=== PATIENT | male | born 1945 | race Two or more races ===

== ENCOUNTER 2019-11-13 09:30 | Inpatient (IN) | payer MEDICARE, OTHER ==
[~2019-11-13] VITALS: Ht 170.2 cm; Wt 105.2 kg
[2019-11-13] VITALS (7 sets, daily range): BP systolic 140–160; BP diastolic 72–91
--- NOTE | 2019-11-13 09:30 | NUR ---
ED Nurse Note: Patient CHUYITA RA70 from home c/o SOB x 3 days, fever 100.9F and cough x yesterday. Pt is on NRB, O2 100%. Pt was tested for Covid yesterday , result pending. Patient presented diaforetic, weak, with SOB. Patient's O2 sat 83% on a RA, DC NRB mask and placed patient on 2 L via NC. Patient's O2 sat 96%. IV access was established on left forearm 18 ga, blood and urine specimen collected sent down.
[2019-11-13] MEDS ORDERED: PROCRIT4000 UNIT/ SUBQ (09:38)
[2019-11-13] MEDS ORDERED: HUMALOG100 UNIT/4 SUBQ (09:38)
[2019-11-13] MEDS ORDERED: FUROSEMIDE40 MG ORAL (09:38)
[2019-11-13] MEDS ORDERED: PROPRANOLOL HCL10 MG ORAL (09:38)
[2019-11-13] MEDS ORDERED: ZOCOR40 MG ORAL (09:38)
[2019-11-13] MEDS ORDERED: VITAMIN D375 MCG PO (09:38)
[2019-11-13] MEDS ORDERED: FERROUS SULFAT325 MG ORAL (09:38)
[2019-11-13] MEDS ORDERED: ALLOPURINOL300 M1 ORAL (09:38)
[2019-11-13] MEDS ORDERED: MAGNESIUM250 M2 PO (09:38)
--- NOTE | 2019-11-13 09:40 | NUR ---
ED Nurse Note: Patient start desating, patient's O2 sat went down to 83%, placed patient on 2L via NC.
[2019-11-13 10:15] LABS: ANION GAP 10 mmol/L (5-15); BLOOD UREA NITROGEN 44 mg/dL (7-18); CALCIUM 7.6 MG/DL (8.5-10.1); CARBON DIOXIDE 23 MMOL/L (21-32); CHLORIDE 100 MMOL/L (98-107); CREATININE 2.9 MG/DL (0.55-1.30); POTASSIUM 5.1 MMOL/L (3.5-5.1); SODIUM 133 MMOL/L (136-145)
[2019-11-13 10:26] LABS: BASOPHILS % (AUTO) 0.4 % (0.0-2.0); EOSINOPHILS % (AUTO) 0.3 % (0.0-3.0); HEMATOCRIT 26.9 % (42.0-52.0); HEMOGLOBIN 9.1 G/DL (14.2-18.0); LYMPHOCYTES % (AUTO) 12.6 % (20.0-45.0); MEAN CORPUSCULAR VOLUME 92 FL (80-99); MONOCYTES % (AUTO) 7.4 % (1.0-10.0); NEUTROPHILS % (AUTO) 79.2 % (45.0-75.0); PLATELET COUNT 128 K/UL (150-450); RED BLOOD COUNT 2.91 M/UL (4.70-6.10); RED CELL DISTRIBUTION WIDTH 13.8 % (11.6-14.8); WHITE BLOOD COUNT 6.4 K/UL (4.8-10.8)
--- NOTE | 2019-11-13 10:26 | NUR ---
ED Nurse Note: Patient is in the room resting with eyes close, NAD noted.
[2019-11-13 10:28] LABS: ALANINE AMINOTRANSFERASE 15 U/L (12-78); ALBUMIN 2.1 G/DL (3.4-5.0); ALBUMIN/GLOBULIN RATIO 0.5 (1.0-2.7); ALKALINE PHOSPHATASE 76 U/L (46-116); ASPARTATE AMINO TRANSFERASE 28 U/L (15-37); BILIRUBIN,TOTAL 0.8 MG/DL (0.2-1.0); CKMB 0.7 NG/ML (0.0-3.6); CREATINE KINASE 96 U/L (26-308); PHOSPHORUS 4.3 MG/DL (2.5-4.9)
--- NOTE | 2019-11-13 10:31 | Emergency Room Report ---
History of Present Illness General Chief Complaint: Dyspnea/Respdistress Source: Patient, EMS Present Illness HPI This patient is brought in by EMS. The patient states he had been fatigued and tired for the past week. Over the past few days he has developed shortness of breath. Yesterday he had 2 episodes of fainting. He does have a history of anemia that at times has required transfusions. Over the past couple days he has become very short of breath. He was tested for COVID-[address] a [address]-through location. These test results are pending. Later, the patient's daughter arrived and stated that the family members had tested positive for COVID-19 a few days ago. 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 COVID-19 Screening: PUI COVID-19 COVID-19 Testing Source: n Patient History Past Medical History: see triage record, DM, HTN, renal disease, other - Esophagitis, anemia (unsure of the source of bleeding) Social History: Denies: smoking, alcohol use, drug use Reviewed Nursing Documentation: PMH: Agreed; PSxH: Agreed Nursing Documentation-PMH Hx Cardiac Problems: Yes Hx Hypertension: Yes Hx Diabetes: Yes Review of Systems All Other Systems: negative except mentioned in HPI Physical Exam Vital Signs Date Time Temp Pulse Resp B/P (MAP) Pulse Ox O2 Delivery O2 Flow Rate FiO2 11/13/19 09:22 98.8 74 20 140/80 (100) 100 Non-Rebreather 11/13/19 09:40 83 Sp02 EP Interpretation: reviewed, normal General Appearance: no apparent distress, alert, GCS 15, non-toxic Head: normocephalic, atraumatic Eyes: bilateral eye normal inspection, bilateral eye PERRL ENT: hearing grossly normal, normal pharynx, no angioedema, normal voice Neck: full range of motion, supple/symm/no masses Respiratory: chest non-tender, lungs clear, normal breath sounds, no respiratory distress, no retraction, no accessory muscle use, speaking full sentences Cardiovascular #1: regular rate, rhythm, no edema Gastrointestinal: normal bowel sounds, non tender, soft, non-distended, no guarding, no rebound Rectal: deferred Musculoskeletal: back normal, normal range of motion, non-tender Neurologic: alert, motor strength/tone normal, oriented x3, sensory intact, responsive, speech normal Psychiatric: judgement/insight normal, memory normal, mood/affect normal, no suicidal/homicidal ideation Skin: no rash, normal color Medical Decision Making Diagnostic Impression: Primary Impression: Suspected COVID-19 virus infection Additional Impressions: Pulmonary edema Renal failure Lymphopenia Hypoxemia ER Course This patient presents during a global pandemic of COVID-19. The patient's presentation is classic with COVID 19 pulmonary disease. Patient has diffuse patchy opacities, lymphopenia and hypoxia on room air (83%). The patient is comfortable and without evidence of respiratory distress. The patient oxygen saturation is 98% on 2 L nasal cannula. The patient's chest x-ray does show diffuse patchy opacities. However, the patient is maintaining his respiratory status well with oxygen saturations in the high 90s on 2 L of nasal cannula. I did have the patient do proning as he is alert and able to follow instructions. I did not give any anticoagulation for concern of the patient's history of bleeding. IV fluids were also held as this was proven to be detrimental and COVID-19 pulmonary edema. The patient is admitted to the ICU stepdown unit. This patient was evaluated in the context of the global COVID-19 pandemic, which necessitated consideration that the patient might be at risk for infection with the [id number] virus that causes COVID-19. Institutional protocols and algorithms that pertain to the evaluation of patients at risk for COVID-19 and the state of rapid change based on information released by multiple regulatory bodies including the CDC and federal and state organizations. These policies and algorithms were followed during the patient' s care in the ED. This patient is critically ill. This patient required complex medical decision- making, aggressive intervention, extensive laboratory workup and monitoring. Critical care time: 40 minutes. Laboratory Tests Test 11/13/19 09:47 11/13/19 10:10 White Blood Count 6.4 K/UL (4.8-10.8) Red Blood Count 2.91 M/UL (4.70-6.10) L Hemoglobin 9.1 G/DL (14.2-18.0) L Hematocrit 26.9 % (42.0-52.0) L Mean Corpuscular Volume 92 FL (80-99) Mean Corpuscular Hemoglobin 31.1 PG (27.0-31.0) H Mean Corpuscular Hemoglobin Concent 33.7 G/DL (32.0-36.0) Red Cell Distribution Width 13.8 % (11.6-14.8) Platelet Count 128 K/UL (150-450) L Mean Platelet Volume 5.4 FL (6.5-10.1) L Neutrophils (%) (Auto) 79.2 % (45.0-75.0) H Lymphocytes (%) (Auto) 12.6 % (20.0-45.0) L Monocytes (%) (Auto) 7.4 % (1.0-10.0) Eosinophils (%) (Auto) 0.3 % (0.0-3.0) Basophils (%) (Auto) 0.4 % (0.0-2.0) Prothrombin Time 10.9 SEC (9.30-11.50) Prothrombin Time INR 1.0 (0.9-1.1) Activated Partial Thromboplast Time 33 SEC (23-33) D-Dimer Pending Sodium Level 133 MMOL/L (136-145) L Potassium Level 5.1 MMOL/L (3.5-5.1) Chloride Level 100 MMOL/L (98-107) Carbon Dioxide Level 23 MMOL/L (21-32) Anion Gap 10 mmol/L (5-15) Blood Urea Nitrogen 44 mg/dL (7-18) H Creatinine 2.9 MG/DL (0.55-1.30) H Estimated Glomerular Filtration Rate 21.5 mL/min (>60) Glucose Level 151 MG/DL (74-106) H Lactic Acid Level 1.80 mmol/L (0.4-2.0) Calcium Level 7.6 MG/DL (8.5-10.1) L Phosphorus Level 4.3 MG/DL (2.5-4.9) Magnesium Level 2.3 MG/DL (1.8-2.4) Total Bilirubin 0.8 MG/DL (0.2-1.0) Aspartate Amino Transferase (AST) 28 U/L (15-37) Alanine Aminotransferase (ALT) 15 U/L (12-78) Alkaline Phosphatase 76 U/L (46-116) Total Creatine Kinase 96 U/L (26-308) Creatine Kinase MB 0.7 NG/ML (0.0-3.6) Creatine Kinase MB Relative Index 0.7 Troponin I 0.060 ng/mL (0.000-0.056) C-Reactive Protein, Quantitative 15.7 mg/dL (0.00-0.90) H Total Protein 6.7 G/DL (6.4-8.2) Albumin 2.1 G/DL (3.4-5.0) L Globulin 4.6 g/dL Albumin/Globulin Ratio 0.5 (1.0-2.7) L Urine Color Pending Urine Appearance Pending Urine pH Pending Urine Specific Sparks Pending Urine Protein Pending Urine Glucose (UA) Pending Urine Ketones Pending Urine Blood Pending Urine Nitrite Pending Urine Bilirubin Pending Urine Urobilinogen Pending Urine Leukocyte Esterase Pending EKG Diagnostic Results Rate: normal Rhythm: NSR ST Segments: no acute changes Rhythm Strip Diag. Results EP Interpretation: yes Rate: 60's Rhythm: NSR, no PVC's, no ectopy Chest X-Ray Diagnostic Results Chest X-Ray Diagnostic Results : Chest X-Ray Ordered: Yes # of Views/Limited/Complete: 1 View Indication: Shortness of Breath EP Interpretation: Yes Interpretation: other - Diffuse patchy opacities Impression: Other - Pulmonary edema Electronically Signed by: Jackie Hearn DO Last Vital Signs Date Time Temp Pulse Resp B/P (MAP) Pulse Ox O2 Delivery O2 Flow Rate FiO2 11/13/19 09:40 74 20 Room Air 83 11/13/19 09:40 98.8 140/80 83 Disposition: ADMITTED INPATIENT Condition: Critical Jackie Hearn DO November 13, 2019 10:31
--- NOTE | 2019-11-13 10:35 | Diagnostic Imaging Report ---
Procedure: XRAY Chest 1v Reason for study: Reason For Exam: SOB Comparison films: None. FINDINGS: Radiograph is underpenetrated. Vascular markings are indistinct. There are bilateral diffuse infiltrates versus edema. Cardiac and mediastinal silhouette are within normal limits. CP angles are sharp. The bony thorax appear unremarkable. IMPRESSION: Bilateral diffuse alveolar densities either infiltrates or edema.
[2019-11-13] MEDS ORDERED: Acetaminophen 500mg (ES) tab ORAL ONE (10:45)
[2019-11-13] MEDS ORDERED: Azithromycin 250mg tab ORAL ONE (10:45)
[2019-11-13 11:01] LABS: APPEARANCE,URINE CLEAR; BILIRUBIN, URINE NEGATIVE (NEGATIVE); COLOR,URINE PALE YELLOW; GLUCOSE, URINE (UA) NEGATIVE (NEGATIVE); KETONES,URINE NEGATIVE (NEGATIVE); LEUKOCYTE ESTERASE ,URINE NEGATIVE (NEGATIVE); NITRITE,URINE NEGATIVE (NEGATIVE); PH,URINE 5 (4.5-8.0); PROTEIN,URINE 4+ (NEGATIVE); UROBILINOGEN,URINE NORMAL MG/DL (0.0-1.0)
--- NOTE | 2019-11-13 11:45 | NUR ---
ED Nurse Note: water was provided
--- NOTE | 2019-11-13 13:20 | NUR ---
*-* INSURANCE *-* HCP P: [phone] OPT. 1 F: [phone] PATIENT IN ER NO CM ASSIGNED
--- NOTE | 2019-11-13 14:00 | NUR ---
ED Nurse Note: REPORT RECEIVED FROM PHILL De Leon. PT IS TRANSPORTED TO [facility] ROOM 239 VIA GURNEY WITH SALT LIFTER ACCOMPANIED BY 2 RN IN STABLE CONDITION. BELONGING LIST SIGNED OFF.
--- NOTE | 2019-11-13 14:10 | NUR ---
NURSE NOTES: Received report from PHILL Schaefer. The patient came in for R/O COVID w/ symptoms of fever, shortness of breath, and coughing. The patient's belongings checked with the patient and two nurses and signed by two nurses. Medical, surgical, allergy, and social history taken by the nurse. Admitting EKG strip obtained from ER. Medication reconciliation completed by the primary nurse. The patient has L FA 18G SL that is intact and patent. Per patient, he does not have POLST or advance directive. Vital signs noted. The patient is AOx4 and mainly Frisian speaking. The patient is on 2L NC and oxygen saturation within normal range. L FA 18G IV intact and patent and SL. No skin issue noted but optifoam applied on sacral and bilateral heels prophylactically. Condom cath applied. The patient's bed in the lowest position, call light in reach, and fall and aspiration precaution reinforced. Will obtain admission order from Dr. Knapp. Will closely monitor the patient. Will continue plan of care.
--- NOTE | 2019-11-13 14:30 | NUR ---
NURSE NOTES: Obtained admission orders from Dr. Knapp and Dr. Yao. The patient is stable at this time. The patient is on 2L NC per order and oxygen saturation within normal range. Will continue plan of care.
--- NOTE | 2019-11-13 14:54 | Consultation ---
Consult Note Consult Note I am asked to evaluate the patient at the request of Dr. Knapp for renal failure Patient seen in room 239 at [facility]. RN present. Patient . Patient has history of cirrhosis of the liver, was ex drinker, has history of diabetes mellitus, and was told by his physicians that he has stage III chronic kidney disease Patient evaluated and examined and data reviewed Emergency room note: This patient is brought in by EMS. The patient states he had been fatigued and tired for the past week. Over the past few days he has developed shortness of breath. Yesterday he had 2 episodes of fainting. He does have a history of anemia that at times has required transfusions. Over the past couple days he has become very short of breath. He was tested for COVID-[address] a [address]-through location. These test results are pending. Later, the patient's daughter arrived and stated that the family members had tested positive for COVID-19 a few days ago. 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 Assessment/Plan Chronic kidney disease stage III most likely due to diabetic nephropathy Diabetes mellitus, 4+ proteinuria Hypertension Presents with respiratory symptoms and exposure to COVID-19 virus Has lymphopenia and anemia Has hypoxia History of cirrhosis of the liver Elevated troponin Suggestions: Pulmonary support Avoid nephrotoxic's Monitor renal parameters Urine studies Anemia work-up 24-hour urine for total protein and creatinine clearance Per orders I spent an additional 35 minutes on review of medical records including prior hospital records ,consult notes ,progress notes ,procedures ,imaging ,labs , hemodynamics ,and other clinical documentations Haim Yao MD November 13, 2019 14:54
[2019-11-13] MEDS ORDERED: HydrALAZINE 25mg tab ORAL PRN (15:15)
[2019-11-13] MEDS: Nitroglycerin Patch 0.4mg TDERMAL SCH (15:39)
--- NOTE | 2019-11-13 16:00 | NUR ---
NURSE NOTES: Vital signs noted. The patient is stable at this time. Will closely monitor the patient. Will continue plan of care.
[2019-11-13] MEDS: NovoLOG Insulin Flexpen SUBQ SCH ×2 (17:24→21:00)
[2019-11-13] MEDS: HydrALAZINE 10mg Tab ORAL SCH (17:25)
[2019-11-13] MEDS: Docusate 100mg cap ORAL SCH (17:25)
[2019-11-13] MEDS: Propranolol 10mg tab ORAL SCH (17:26)
[2019-11-13] MEDS ORDERED: Propranolol 10mg tab ORAL SCH (18:00)
--- NOTE | 2019-11-13 18:00 | NUR ---
NURSE NOTES: Medication administered per order. Vital signs noted. No acute distress or shortness of breath noted. Tolerating well with 2L NC. Will continue plan of care.
--- NOTE | 2019-11-13 19:20 | NUR ---
HAND-OFF: Report given to PHILL Simms. The patient is in stable condition. Endorsed plan of care.
--- NOTE | 2019-11-13 19:43 | NUR ---
NURSE NOTES: The patient oxygen suddenly desaturated to 77% with tachypnea, shortness of breath, and agitation. Immediately notified Dr. Knapp and applied 15L non-rebreather per order. The patient's oxygen saturation normalized to 99%. Endorsed to PHILL Simms.
--- NOTE | 2019-11-13 19:45 | NUR ---
NURSE NOTES: Received pt from PHILL Gamino. pt observed in bed, AO X3, denies pain at this time. pt is on nonrebreather mask at 15L/min; tolerating well, saturation: 99%; no s/sx of respiratory distress noted at this time. air sampling and monitoring shows SR with HR of 76; no acute cardiac distress noted at this time. condom catheter applied to pt. LFA 18 G IV site is patent and intact, asymptomatic. bed in lowest position and locked, siderails up X3, call light within reach. will continue to monitor.
--- NOTE | 2019-11-13 19:53 | NUR ---
NURSE NOTES: received phone call from pt's son, Kameron. gave updates regarding pt's condition and provided unit's phone number.
[2019-11-13] MEDS: Atorvastatin 20mg tab ORAL SCH (21:00)
--- NOTE | 2019-11-13 21:32 | NUR ---
NURSE NOTES: called and spoke with Dr. Knpap regarding pt's desaturation of 85% on nonrebreather. obtained order for STAT ABGs. will carry out.
--- NOTE | 2019-11-13 22:41 | NUR ---
NURSE NOTES: spoke with Dr. Knapp and informed of ABG results. given order for one time 60 mg Lasix IVP. will carry out.
[2019-11-14] VITALS: BP 153/69
--- NOTE | 2019-11-14 03:30 | Consultation ---
DATE OF CONSULTATION: 11/13/2019 CARDIOLOGY CONSULTATION CONSULTING PHYSICIAN: Jonah Griggs MD. REQUESTING PHYSICIAN: Juvenal Knapp MD. REASON FOR CONSULTATION: Elevated troponin level and congestive heart failure. HISTORY OF PRESENT ILLNESS: This is a 74-year-old male, who presented to the emergency room with several days of fatigue, shortness of breath, and two episodes of syncope. The patient has had several family members, who tested positive for COVID-19. The patient himself was tested yesterday, but results are not known. The patient was seen in the emergency room. Diagnostic studies were reviewed. I have been asked to assist with cardiovascular care. PAST MEDICAL HISTORY: Includes liver cirrhosis, chronic anemia, chronic kidney disease, anemia of chronic kidney disease, type 2 diabetes mellitus, hypertensive heart disease, diastolic congestive heart failure, and history of esophagitis. ALLERGIES: None. MEDICATIONS: Reviewed and reconciled. SOCIAL HISTORY: Negative for smoking, alcohol, or substance abuse. FAMILY HISTORY: Noncontributory. REVIEW OF SYSTEMS: Ten-point review of systems performed, all systems negative other than noted above. PHYSICAL EXAMINATION: VITAL SIGNS: Blood pressure 160/90, pulse rate 73, respiratory rate 20, afebrile, oxygen saturation on 2 liters 95%. NECK: Jugular venous pressure is slightly elevated. LUNGS: With bilateral rales. CARDIAC: Regular rhythm and rate. Normal S1, S2 with a fourth heart sound. ABDOMEN: Soft, nontender. EXTREMITIES: A 1+ edema. LABORATORY AND DIAGNOSTIC DATA: White count 6.4, hemoglobin 9.1. ABG 7.42, 31, 130. Sodium 133, potassium 5.1, bicarb 23, BUN 44, creatinine 2.9. Lactic acid normal. Glucose 151. Troponin 0.06. C-reactive protein 15.7. Albumin 2.1. Radiograph of the chest, bilateral infiltrates with possible edema. EKG with sinus rhythm and nonspecific ST change. IMPRESSION: 1. Condition critical. 2. Prognosis guarded. 3. Possible COVID-19 pneumonia. 4. Elevated D-dimer level suggests the possibility of pulmonary embolic events. 5. Acute myocardial ischemia. 6. Possible iic-GQ-emccryaex myocardial infarction. 7. Acute diastolic congestive heart failure. 8. Chronic kidney disease. 9. Anemia of chronic kidney disease. PLAN: Isolation for COVID-19. Cardiac monitoring. Diuresis. Acetaminophen for any fevers. Oxygenation. Venous duplex scan. Echocardiogram. Trending of natriuretic peptide assay. Titrate anti-failure and antihypertensive. Further recommendations will follow. Jonah Griggs M.D. DR: AGUSTIN JOB#: [id number] CC:
[2019-11-14 04:00] VITALS: BP 130/59
[2019-11-14 06:02] LABS: HEMOGLOBIN 7.5 G/DL (14.2-18.0); MEAN CORPUSCULAR VOLUME 94 FL (80-99); PLATELET COUNT 120 K/UL (150-450); RED BLOOD COUNT 2.36 M/UL (4.70-6.10); RED CELL DISTRIBUTION WIDTH 13.8 % (11.6-14.8); WHITE BLOOD COUNT 5.1 K/UL (4.8-10.8)
[2019-11-14 06:39] LABS: ALANINE AMINOTRANSFERASE 12 U/L (12-78); ALBUMIN 1.8 G/DL (3.4-5.0); ALBUMIN/GLOBULIN RATIO 0.4 (1.0-2.7); ALKALINE PHOSPHATASE 67 U/L (46-116); ANION GAP 10 mmol/L (5-15); ASPARTATE AMINO TRANSFERASE 28 U/L (15-37); BILIRUBIN,TOTAL 0.7 MG/DL (0.2-1.0); BLOOD UREA NITROGEN 53 mg/dL (7-18); CALCIUM 7.1 MG/DL (8.5-10.1); CARBON DIOXIDE 22 MMOL/L (21-32); CHLORIDE 101 MMOL/L (98-107); CHOLESTEROL 85 MG/DL (< 200); CREATININE 3.4 MG/DL (0.55-1.30); FERRITIN 646 NG/ML (8-388); GAMMA GLUTAMYL TRANSPEPTIDASE 21 U/L (5-85); HDL CHOLESTEROL 34 MG/DL (40-60); LACTATE DEHYDROGENASE 338 U/L (81-234); PHOSPHORUS 5.2 MG/DL (2.5-4.9); POTASSIUM 5.2 MMOL/L (3.5-5.1); SODIUM 133 MMOL/L (136-145); TRIGLYCERIDES 72 MG/DL (30-150)
[2019-11-14] MEDS: NovoLOG Insulin Flexpen SUBQ SCH ×4 (06:42→21:35)
--- NOTE | 2019-11-14 07:35 | NUR ---
HAND-OFF: Report given to PHILL Woodall. endorsed plan of care.
[2019-11-14 07:49] LABS: AMMONIA 18 umol/L (11-32)
[2019-11-14 08:00] VITALS: BP 167/98
[2019-11-14] MEDS ORDERED: Magnesium Oxide 400mg tab ORAL SCH (09:00)
[2019-11-14] MEDS: Docusate 100mg cap ORAL SCH ×3 (09:49→18:36)
[2019-11-14] MEDS: Aspirin Baby 81mg ORAL SCH (09:50)
[2019-11-14] MEDS: Vitamin D 1000 IU Tab ORAL SCH (09:50)
[2019-11-14] MEDS: Propranolol 10mg tab ORAL SCH ×2 (09:51→18:37)
[2019-11-14] MEDS: HydrALAZINE 10mg Tab ORAL SCH ×4 (09:51→21:36)
--- NOTE | 2019-11-14 11:23 | History & Physical ---
History and Physical History & Physicial HISTORY OF PRESENT ILLNESS: This is a 74-year-old male, who presented to the emergency room with several days of fatigue, shortness of breath, and two episodes of syncope. The patient has had several family members, who tested positive for COVID-19. The patient himself was tested yesterday, but results are not known. The patient was seen in the emergency room. Diagnostic studies were reviewed. PAST MEDICAL HISTORY: Includes liver cirrhosis, chronic anemia, chronic kidney disease, anemia of chronic kidney disease, type 2 diabetes mellitus, hypertensive heart disease, diastolic congestive heart failure, and history of esophagitis. ALLERGIES: None. MEDICATIONS: Reviewed and reconciled. SOCIAL HISTORY: Negative for smoking, alcohol, or substance abuse. FAMILY HISTORY: Noncontributory. REVIEW OF SYSTEMS: Ten-point review of systems performed, all systems negative other than noted above. PHYSICAL EXAMINATION: VITAL SIGNS: Blood pressure 160/90, pulse rate 73, respiratory rate 20, afebrile, oxygen saturation on 2 liters 95%. NECK: Jugular venous pressure is slightly elevated. LUNGS: With bilateral rales. CARDIAC: Regular rhythm and rate. Normal S1, S2 with a fourth heart sound. ABDOMEN: Soft, nontender. EXTREMITIES: A 1+ edema. LABORATORY AND DIAGNOSTIC DATA: White count 6.4, hemoglobin 9.1. ABG 7.42, 31, 130. Sodium 133, potassium 5.1, bicarb 23, BUN 44, creatinine 2.9. Lactic acid normal. Glucose 151. Troponin 0.06. C-reactive protein 15.7. Albumin 2.1. Radiograph of the chest, bilateral infiltrates with possible edema. EKG with sinus rhythm and nonspecific ST change. IMPRESSION: 1. Condition critical. 2. Prognosis guarded. 3. Possible COVID-19 pneumonia. 4. HTN 5. Acute myocardial ischemia. 6. Possible alg-WW-dfyhajruc myocardial infarction. 7. Acute diastolic congestive heart failure. 8. Chronic kidney disease. 9. Anemia of chronic kidney disease. 10. DM PLAN: Isolation for COVID-19. Cardiac monitoring. Diuresis. Acetaminophen for fevers. Oxygenation. Venous duplex scan. Echocardiogram. Trending of natriuretic peptide assay. Titrate anti-failure and antihypertensive. Further recommendations will follow. Diabetes care Loco Young Omar Syed MD November 14, 2019 11:23
[2019-11-14 12:00] VITALS: BP 154/71
--- NOTE | 2019-11-14 12:38 | NUR ---
NURSE NOTES: Called and left voicemail for Dr Yao regarding order for Ramos catheter d/t need for 24 hr urine collection and condom catheter keeps coming off.
[2019-11-14] MEDS: Tamsulosin 0.4mg cap ORAL SCH ×2 (13:30→18:37)
--- NOTE | 2019-11-14 13:32 | Nephrology Progress Note ---
Assessment/Plan Problem List: (1) Renal failure (ARF), acute on chronic (2) Hypoxemia (3) Suspected COVID-19 virus infection (4) Lymphopenia (5) Anemia in chronic kidney disease (CKD) (6) Hypertensive kidney disease (7) Elevated troponin I level (8) Diabetic nephropathy Assessment Chronic kidney disease stage III most likely due to diabetic nephropathy Diabetes mellitus, 4+ proteinuria Hypertension Presents with respiratory symptoms and exposure to COVID-19 virus Has lymphopenia and anemia Has hypoxia History of cirrhosis of the liver Elevated troponin Anemia of chronic kidney disease Plan Keep the blood pressure in check Check iron panel, IV Venofer once, subcu Epogen ordered Pulmonary support Antibiotics, avoid nephrotoxic's Monitor renal parameters Urine studies Anemia work-up 24-hour urine for total protein and creatinine clearance, when serum creatinine is plateaued Per orders Subjective ROS Limited/Unobtainable: No Constitutional: Reports: malaise, weakness Objective Objective Last 24 Hour Vital Signs Date Time Temp Pulse Resp B/P (MAP) Pulse Ox O2 Delivery O2 Flow Rate FiO2 11/14/19 12:09 154/71 11/14/19 09:51 167/98 11/14/19 09:51 81 11/14/19 08:00 14.0 55 11/14/19 08:00 82 11/14/19 08:00 100.4 81 19 167/98 (121) 97 11/14/19 04:00 98.5 69 24 130/59 (82) 100 11/14/19 04:00 14.0 55 11/14/19 04:00 Venturi Mask 14.0 11/14/19 04:00 77 11/14/19 02:26 99.0 11/14/19 00:00 15.0 11/14/19 00:00 78 11/14/19 00:00 100.8 82 28 153/69 (97) 96 11/14/19 00:00 Non-Rebreather 15.0 11/13/19 21:53 99.5 75 32 149/72 (97) 99 11/13/19 20:00 84 11/13/19 20:00 99.5 75 32 149/72 (97) 99 11/13/19 19:43 Non-Rebreather 15.0 11/13/19 19:43 15.0 11/13/19 17:26 72 160/91 11/13/19 17:25 160/91 11/13/19 16:00 Nasal Cannula 2.0 11/13/19 16:00 98.2 75 20 160/91 (114) 95 11/13/19 16:00 72 11/13/19 16:00 2.0 11/13/19 15:39 160/91 11/13/19 15:30 98.2 75 20 160/91 (114) 95 11/13/19 14:20 98.8 71 20 150/77 (101) 97 11/13/19 14:00 98.5 70 18 133/84 97 Nasal Cannula 2.0 11/13/19 13:42 Nasal Cannula 2.0 Intake and Output 11/13/19 11/14/19 19:00 07:00 Intake Total 500 ml 480 ml Balance 500 ml 480 ml Intake Oral 500 ml 480 ml # Voids 1 2 Laboratory Tests 11/13/19 22:36: Arterial Blood pH 7.417, Arterial Blood Partial Pressure CO2 31.3L, Arterial Blood Partial Pressure O2 138.4H, Arterial Blood HCO3 19.7L, Arterial Blood Oxygen Saturation 98.3, Arterial Blood Base Excess -4.2L, Nasir Test Positive 11/14/19 05:20: White Blood Count 5.1, Red Blood Count 2.36L, Hemoglobin 7.5L, Hematocrit 22.0L , Mean Corpuscular Volume 94, Mean Corpuscular Hemoglobin 31.8H, Mean Corpuscular Hemoglobin Concent 34.0, Red Cell Distribution Width 13.8, Platelet Count 120L, Mean Platelet Volume 5.9L, Neutrophils (%) (Auto) , Lymphocytes (%) (Auto) , Monocytes (%) (Auto) , Eosinophils (%) (Auto) , Basophils (%) (Auto) , Differential Total Cells Counted 100, Neutrophils % (Manual) 76H, Lymphocytes % (Manual) 14L, Monocytes % (Manual) 10, Eosinophils % (Manual) 0, Basophils % ( Manual) 0, Band Neutrophils 0, Platelet Estimate DecreasedL, Platelet Morphology Normal, Hypochromasia 3+, Anisocytosis 1+, Sodium Level 133L, Potassium Level 5.2H, Chloride Level 101, Carbon Dioxide Level 22, Anion Gap 10 , Blood Urea Nitrogen 53H, Creatinine 3.4H, Estimat Glomerular Filtration Rate 17.9, Glucose Level 174H, Hemoglobin A1c 7.0H, Uric Acid 6.6, Calcium Level 7.1L , Phosphorus Level 5.2H, Magnesium Level 2.2, Iron Level [Pending], Unsaturated Iron Binding [Pending], Ferritin 646H, Total Bilirubin 0.7, Gamma Glutamyl Transpeptidase 21, Aspartate Amino Transf (AST/SGOT) 28, Alanine Aminotransferase (ALT/SGPT) 12, Alkaline Phosphatase 67, Ammonia 18, Lactate Dehydrogenase 338H, Troponin I 0.098H, C-Reactive Protein, Quantitative 17.4H, Pro-B-Type Natriuretic Peptide 5929H, Total Protein 6.1L, Albumin 1.8L, Globulin 4.3, Albumin/Globulin Ratio 0.4L, Triglycerides Level 72, Cholesterol Level 85, LDL Cholesterol 43, HDL Cholesterol 34L, Cholesterol/HDL Ratio 2.5L, Vitamin B12 Level 505, Folate 13.4, Thyroid Stimulating Hormone (TSH) 0.670, Cortisol AM Sample [Pending] Height (Feet): 5 Height (Inches): 7.00 Weight (Pounds): 220 General Appearance: no apparent distress, lethargic Cardiovascular: tachycardia - Rate in 80s Respiratory/Chest: decreased breath sounds Abdomen: distended Haim Yao MD November 14, 2019 13:32
[2019-11-14 13:36] LABS: % IRON SATURATION 7 % (15-50); IRON 12 ug/dL (50-175); TOTAL IRON BINDING CAPACITY 163 ug/dL (250-450)
--- NOTE | 2019-11-14 14:45 | NUR ---
NURSE NOTES: Per Dr. Yao, cancel 24 hour urine collection
[2019-11-14] MEDS: Nitroglycerin Patch 0.4mg TDERMAL SCH (15:40)
[2019-11-14 16:00] VITALS: BP 161/80
[2019-11-14] MEDS ORDERED: Iron Sucrose 200 MG in NS 110 ML IV ONE (16:00)
--- NOTE | 2019-11-14 18:16 | NUR ---
CASE MANAGEMENT: INITIAL REVIEW 74YR OLD MALE BIBA FROM HOME CC:DYSPNEA / RESPIRATORY DISTRESS SI:COVID-19 R/O . HYPOXIA . PULMONARY EDEMA . RENAL FAILURE. LYMPHOPENIA 100.9 74 20 140/80 83% ON RA DDIMER 2.16 TROP 0.06 H/H 9.1/26.9 PLT 128 NA+ 133 BUN/CREAT 44/2.9 BG 151 CA+ 7.6 ABG: pCO2 31.3 pO2 138.4 HCO3-19.7 IS:ZITHROMAX PO X1 XRAY Chest 1v-Bilateral diffuse alveolar densities either infiltrates or edema. \: 2W STEP DOWN UNIT CASE MANAGEMENT: REVIEW 11/14/19 SI:COVID-19 R/O . HYPOXIA . PULMONARY EDEMA . RENAL FAILURE. LYMPHOPENIA 100.4 82 19 167/98 97 % ON VENTURI MASK 14L TROP 0.098 H/H 7.5/22.0 PLT 120 NA+ 133 K+ 5.2 BUN/CREAT 53/3.4 BG 174 CA+ 7.1 PHOS 5.2 FERR 646 LDH 338 BNP 5929 ALB 1.8 IS:IV VENOFER X1 NOVOLOG SQ AC&HS NTG TD Q24HR LIPITOR PO QHS ALLOPURINOL PO QD PROTONIX PO BID INDERAL PO BID ASA PO QD VIT D PO QD TYLENOL PO Q6HR/PRN \: 2W STEP DOWN UNIT PLAN: AM LABS NEPHRO CONSULT MEDICATION ADJUSTMENTS 24HR URINE COLLECTION
--- NOTE | 2019-11-14 19:20 | NUR ---
NURSE NOTES: Received report from PHILL Abbasi. Patient awake, alert x 3-4. afebrile and has no respiratory distress noted. Patient verbalized he's okay and wants to sleep for now. On NRB at 15 lpm tolerating well and Sat02 at 93-94%. With left FA 18G saline lock intact, asymptomatic and flushed. HOB elevated, bed wheels are locked and side rails are up. Needs were attended. Continue with plan of care.
--- NOTE | 2019-11-14 19:30 | NUR ---
HAND-OFF: Report given to ALLEN POLLOCK.
[2019-11-14 20:00] VITALS: BP 155/56
[2019-11-14] MEDS: Atorvastatin 20mg tab ORAL SCH (20:06)
[2019-11-15] VITALS: BP 124/61
--- NOTE | 2019-11-15 02:18 | NUR ---
NURSE NOTES: Patient asleep in bed at left lying comfortable position and on NRB saturating at 94-96%. No respiratory distress. Provided blankets. HOB elevated. Continue to monitor patient
--- NOTE | 2019-11-15 03:00 | Progress Note ---
DATE: 11/14/2019 CARDIOLOGY PROGRESS NOTE SUBJECTIVE: The patient continues to have fevers up to 100.4. Blood pressure parameters improve, but still high range at times up to 167/98. Heart rate, sinus rhythm in the 80s. OBJECTIVE: LUNGS: Bilateral breath sounds. No wheezing. Few rales. CARDIAC: Regular rhythm and rate. Normal S1 and S2 with a fourth heart sound. ABDOMEN: Soft. EXTREMITIES: No edema. LABORATORY DATA: White count 5.1, hemoglobin 7.5, iron is 12 with 7% saturation. Sodium 133, potassium 5.2, bicarb 22, BUN 53, and creatinine 3.4. Troponin is 0.098. IMPRESSION: 1. Acute myocardial ischemia and possible jgv-BU-mfutbkwwp myocardial infarction. 2. Severe iron deficiency with anemia. 3. Acute on chronic renal failure. 4. Acute on chronic diastolic congestive heart failure. 5. Possible COVID-19 pneumonia. 6. Remains critical and guarded. 7. Hypertension, poorly controlled. PLAN: 1. Isolation. 2. Cardiac monitoring. 3. Acetaminophen for fevers. 4. Antimicrobials. 5. Await echocardiogram. 6. Titrate antihypertensives. Jonah Griggs M.D. DR: JOHNNY JOB#: [id number] CC:
[2019-11-15 04:00] VITALS: BP 129/97
[2019-11-15 05:28] LABS: HEMATOCRIT 23.3 % (42.0-52.0); HEMOGLOBIN 7.9 G/DL (14.2-18.0); MEAN CORPUSCULAR VOLUME 93 FL (80-99); PLATELET COUNT 121 K/UL (150-450); RED CELL DISTRIBUTION WIDTH 13.7 % (11.6-14.8); WHITE BLOOD COUNT 5.7 K/UL (4.8-10.8)
[2019-11-15 05:58] LABS: ALANINE AMINOTRANSFERASE 14 U/L (12-78); ALBUMIN 1.9 G/DL (3.4-5.0); ALBUMIN/GLOBULIN RATIO 0.4 (1.0-2.7); ALKALINE PHOSPHATASE 77 U/L (46-116); ANION GAP 10 mmol/L (5-15); ASPARTATE AMINO TRANSFERASE 43 U/L (15-37); BILIRUBIN,TOTAL 0.9 MG/DL (0.2-1.0); BLOOD UREA NITROGEN 62 mg/dL (7-18); CALCIUM 7.5 MG/DL (8.5-10.1); CARBON DIOXIDE 22 MMOL/L (21-32); CHLORIDE 101 MMOL/L (98-107); CREATINE KINASE 191 U/L (26-308); CREATININE 3.5 MG/DL (0.55-1.30); PHOSPHORUS 5.5 MG/DL (2.5-4.9); POTASSIUM 5.6 MMOL/L (3.5-5.1); SODIUM 133 MMOL/L (136-145)
[2019-11-15] MEDS: NovoLOG Insulin Flexpen SUBQ SCH ×4 (05:59→20:33)
[2019-11-15] MEDS: HydrALAZINE 10mg Tab ORAL SCH ×3 (06:03→21:55)
--- NOTE | 2019-11-15 06:20 | NUR ---
NURSE NOTES: Placed a call and left a message to Dr Yao regarding patient's Potassium level 5.6 . Pt is asymptomatic and sleeping right now. Awaiting for response
--- NOTE | 2019-11-15 07:04 | NUR ---
HAND-OFF: Report given to Elroy Bragg RN. Pt stable and asleep in bed. Addendum: 11/15/19 at 0716 by ALLEN Gutierrez RN [id number]: Endorsed to AM nurse Abbasi to ff up with Dr Yao for any orders regarding Potassium level 5.6.
[2019-11-15 08:00] VITALS: BP 124/75
[2019-11-15] MEDS ORDERED: Sodium Polystyrene Sulfonate 15gm Powder ORAL SCH (08:30)
[2019-11-15] MEDS: Tamsulosin 0.4mg cap ORAL SCH ×2 (09:02→17:13)
[2019-11-15] MEDS: Aspirin Baby 81mg ORAL SCH (09:05)
[2019-11-15] MEDS: Docusate 100mg cap ORAL SCH ×3 (09:06→17:13)
[2019-11-15] MEDS: Vitamin D 1000 IU Tab ORAL SCH (09:06)
[2019-11-15] MEDS: Propranolol 10mg tab ORAL SCH ×2 (09:14→17:12)
--- NOTE | 2019-11-15 09:30 | NUR ---
NURSE NOTES: Ramos Catheter Coude 14 Italian placed, patent with good urine output. Patient given Kayexalate per order for Hyperkalemia. Patient resting in bed, O2 sat 98% on 15L non-rebreather. VSS, no s/s of acute distress.
--- NOTE | 2019-11-15 10:36 | Pulmonology Progress Note ---
Subjective ROS Limited/Unobtainable: No Interval Events: Doing poorly Constitutional: Reports: no symptoms HEENT: Repors: no symptoms Respiratory: Reports: no symptoms Cardiovascular: Reports: no symptoms Gastrointestinal/Abdominal: Reports: no symptoms Genitourinary: Reports: no symptoms Allergies: Coded Allergies: No Known Allergies (Unverified , 11/13/19) Objective Last 24 Hour Vital Signs Date Time Temp Pulse Resp B/P (MAP) Pulse Ox O2 Delivery O2 Flow Rate FiO2 11/15/19 09:14 74 124/65 11/15/19 07:44 65 11/15/19 06:03 117/75 11/15/19 04:00 15.0 11/15/19 04:00 Non-Rebreather 15.0 11/15/19 04:00 98.2 84 20 129/97 (108) 95 11/15/19 03:57 82 11/15/19 00:00 98.9 83 20 124/61 (82) 95 11/15/19 00:00 88 11/15/19 00:00 Non-Rebreather 15.0 11/14/19 21:36 171/72 11/14/19 20:05 171/72 11/14/19 20:00 15.0 11/14/19 20:00 99.8 82 20 155/56 (89) 95 11/14/19 20:00 Non-Rebreather 15.0 11/14/19 19:26 83 11/14/19 18:37 81 158/73 11/14/19 16:00 73 11/14/19 16:00 14.0 55 11/14/19 16:00 Venturi Mask 14.0 11/14/19 16:00 99.7 75 20 161/80 (107) 95 11/14/19 15:40 161/80 11/14/19 12:09 154/71 11/14/19 12:00 Venturi Mask 14.0 11/14/19 12:00 73 11/14/19 12:00 14.0 55 11/14/19 12:00 99.7 75 20 154/71 (98) 95 Intake and Output 11/14/19 11/15/19 19:00 07:00 Intake Total 300 ml 300 ml Balance 300 ml 300 ml Intake Oral 300 ml 300 ml # Voids 3 2 # Bowel Movements 3 General Appearance: no acute distress HEENT: normocephalic Respiratory: chest wall non-tender, lungs clear Cardiovascular: normal peripheral pulses Abdomen: normal bowel sounds Microbiology Date/Time Source Procedure Growth Status 11/13/19 09:47 Blood Blood Culture - Preliminary NO GROWTH AFTER 24 HOURS Resulted 11/13/19 09:35 Blood Blood Culture - Preliminary NO GROWTH AFTER 24 HOURS Resulted Laboratory Tests 11/15/19 03:20: Urine Eosinophils Occasional 11/15/19 04:30: White Blood Count 5.7, Red Blood Count 2.50L, Hemoglobin 7.9L, Hematocrit 23.3L , Mean Corpuscular Volume 93, Mean Corpuscular Hemoglobin 31.5H, Mean Corpuscular Hemoglobin Concent 33.7, Red Cell Distribution Width 13.7, Platelet Count 121L, Mean Platelet Volume 5.6L, Neutrophils (%) (Auto) , Lymphocytes (%) (Auto) , Monocytes (%) (Auto) , Eosinophils (%) (Auto) , Basophils (%) (Auto) , Differential Total Cells Counted 100, Neutrophils % (Manual) 79H, Lymphocytes % (Manual) 11L, Monocytes % (Manual) 10, Eosinophils % (Manual) 0, Basophils % ( Manual) 0, Band Neutrophils 0, Platelet Estimate DecreasedL, Platelet Morphology Normal, Hypochromasia 3+, Anisocytosis 1+, Spherocytes 1+, Sodium Level 133L, Potassium Level 5.6H, Chloride Level 101, Carbon Dioxide Level 22, Anion Gap 10, Blood Urea Nitrogen 62H, Creatinine 3.5H, Estimat Glomerular Filtration Rate 17.3, Glucose Level 235H, Uric Acid 6.8, Calcium Level 7.5L, Phosphorus Level 5.5H, Magnesium Level 2.2, Total Bilirubin 0.9, Aspartate Amino Transf (AST/SGOT) 43H, Alanine Aminotransferase (ALT/SGPT) 14, Alkaline Phosphatase 77, Total Creatine Kinase 191, Troponin I 0.090H, C-Reactive Protein , Quantitative 20.6H, Pro-B-Type Natriuretic Peptide 5613H, Total Protein 6.2L, Albumin 1.9L, Globulin 4.3, Albumin/Globulin Ratio 0.4L Current Medications Medications (Trade) Dose Ordered Sig/Raciel Route PRN Reason Start Time Stop Time Status Last Admin Dose Admin Acetaminophen (Tylenol) 650 mg Q6H PRN ORAL FEVER >100.5 11/13/19 21:45 12/13/19 21:44 11/14/19 01:56 Allopurinol (allopurinoL) 300 mg DAILY ORAL 11/14/19 09:00 12/14/19 08:59 11/15/19 09:06 Aspirin (ASA) 81 mg DAILY ORAL 11/14/19 09:00 12/29/19 08:59 11/15/19 09:05 Atorvastatin Calcium (Lipitor) 20 mg BEDTIME ORAL 11/13/19 21:00 02/11/20 20:59 11/14/19 20:06 Dextrose (Dextrose 50%) 25 ml Q30M PRN IV Hypoglycemia 11/13/19 15:15 02/11/20 15:14 Dextrose (Dextrose 50%) 50 ml Q30M PRN IV Hypoglycemia 11/13/19 15:15 02/11/20 15:14 Docusate Sodium (Colace) 100 mg THREE TIMES A DAY ORAL 11/13/19 18:00 12/13/19 17:59 11/15/19 09:06 Epoetin Jovi (Epoetin Jovi-EPBX(NON ESRD)) 10,000 unit SAT-SAT-SAT SUBQ 11/16/19 21:00 02/14/20 20:59 Hydralazine HCl (Apresoline) 25 mg Q4H PRN ORAL Blood pressure over 160 systol 11/13/19 15:15 02/11/20 15:14 11/14/19 20:05 Hydralazine HCl (Apresoline) 25 mg Q8HR ORAL 11/15/19 06:00 02/13/20 05:59 11/15/19 06:03 Insulin Aspart (NovoLOG) BEFORE MEALS AND HS SUBQ 11/13/19 16:30 02/11/20 16:29 11/15/19 05:59 Nitroglycerin (Ntg) 1 patch Q24H TDERMAL 11/13/19 16:00 12/13/19 15:59 11/14/19 15:40 Pantoprazole (Protonix) 40 mg EVERY 12 HOURS ORAL 11/13/19 21:00 12/13/19 20:59 11/15/19 09:06 Propranolol HCl (Inderal) 20 mg BID ORAL 11/13/19 18:00 12/13/19 17:59 11/15/19 09:14 Tamsulosin HCl (Flomax) 0.4 mg BID ORAL 11/14/19 13:30 12/14/19 13:29 11/15/19 09:02 Vitamin D (Vitamin D) 2,000 intlu DAILY ORAL 11/14/19 09:00 12/14/19 08:59 11/15/19 09:06 Assessment/Plan Assessment/Plan IMPRESSION: 1. Hypoxemia; worsening 2. Prognosis guarded. 3. Possible COVID-19 pneumonia. 4. HTN 5. Acute myocardial ischemia. 6. Possible yhb-JC-qneslurwn myocardial infarction. 7. Acute diastolic congestive heart failure. 8. Chronic kidney disease. 9. Anemia of chronic kidney disease. 10. DM PLAN: Isolation for COVID-19. Cardiac monitoring. Diuresis. Acetaminophen for fevers. Oxygenation. Venous duplex scan. Echocardiogram. Trending of natriuretic peptide assay. Titrate anti-failure and antihypertensive. Diabetes care Juvenal Knapp M.D. Juvenal Knapp MD November 15, 2019 10:36
[2019-11-15 12:00] VITALS: BP 145/93
--- NOTE | 2019-11-15 12:16 | Nephrology Progress Note ---
Assessment/Plan Problem List: (1) Renal failure (ARF), acute on chronic (2) Hypoxemia (3) Suspected COVID-19 virus infection (4) Lymphopenia (5) Anemia in chronic kidney disease (CKD) (6) Hypertensive kidney disease (7) Elevated troponin I level (8) Diabetic nephropathy Assessment Chronic kidney disease stage III most likely due to diabetic nephropathy Diabetes mellitus, 4+ proteinuria Hypertension Presents with respiratory symptoms and exposure to COVID-19 virus Has lymphopenia and anemia Has hypoxia History of cirrhosis of the liver Elevated troponin Anemia of chronic kidney disease Plan Ramos catheter now for accurate intake and output Kayexalate for high potassium IV iron Keep the blood pressure in check Check iron panel,, subcu Epogen ordered Pulmonary support Antibiotics, avoid nephrotoxic's Monitor renal parameters Urine studies Anemia work-up 24-hour urine for total protein and creatinine clearance, when serum creatinine is plateaued Per orders Subjective ROS Limited/Unobtainable: No Constitutional: Reports: malaise, weakness Objective Objective Last 24 Hour Vital Signs Date Time Temp Pulse Resp B/P (MAP) Pulse Ox O2 Delivery O2 Flow Rate FiO2 11/15/19 09:14 74 124/65 11/15/19 07:44 65 11/15/19 06:03 117/75 11/15/19 04:00 15.0 11/15/19 04:00 Non-Rebreather 15.0 11/15/19 04:00 98.2 84 20 129/97 (108) 95 11/15/19 03:57 82 11/15/19 00:00 98.9 83 20 124/61 (82) 95 11/15/19 00:00 88 11/15/19 00:00 Non-Rebreather 15.0 11/14/19 21:36 171/72 11/14/19 20:05 171/72 11/14/19 20:00 15.0 11/14/19 20:00 99.8 82 20 155/56 (89) 95 11/14/19 20:00 Non-Rebreather 15.0 11/14/19 19:26 83 11/14/19 18:37 81 158/73 11/14/19 16:00 73 11/14/19 16:00 14.0 55 11/14/19 16:00 Venturi Mask 14.0 11/14/19 16:00 99.7 75 20 161/80 (107) 95 11/14/19 15:40 161/80 Intake and Output 11/14/19 11/15/19 19:00 07:00 Intake Total 300 ml 300 ml Balance 300 ml 300 ml Intake Oral 300 ml 300 ml # Voids 3 2 # Bowel Movements 3 Laboratory Tests 11/15/19 03:20: Urine Eosinophils Occasional 11/15/19 04:30: White Blood Count 5.7, Red Blood Count 2.50L, Hemoglobin 7.9L, Hematocrit 23.3L , Mean Corpuscular Volume 93, Mean Corpuscular Hemoglobin 31.5H, Mean Corpuscular Hemoglobin Concent 33.7, Red Cell Distribution Width 13.7, Platelet Count 121L, Mean Platelet Volume 5.6L, Neutrophils (%) (Auto) , Lymphocytes (%) (Auto) , Monocytes (%) (Auto) , Eosinophils (%) (Auto) , Basophils (%) (Auto) , Differential Total Cells Counted 100, Neutrophils % (Manual) 79H, Lymphocytes % (Manual) 11L, Monocytes % (Manual) 10, Eosinophils % (Manual) 0, Basophils % ( Manual) 0, Band Neutrophils 0, Platelet Estimate DecreasedL, Platelet Morphology Normal, Hypochromasia 3+, Anisocytosis 1+, Spherocytes 1+, Sodium Level 133L, Potassium Level 5.6H, Chloride Level 101, Carbon Dioxide Level 22, Anion Gap 10, Blood Urea Nitrogen 62H, Creatinine 3.5H, Estimat Glomerular Filtration Rate 17.3, Glucose Level 235H, Uric Acid 6.8, Calcium Level 7.5L, Phosphorus Level 5.5H, Magnesium Level 2.2, Total Bilirubin 0.9, Aspartate Amino Transf (AST/SGOT) 43H, Alanine Aminotransferase (ALT/SGPT) 14, Alkaline Phosphatase 77, Total Creatine Kinase 191, Troponin I 0.090H, C-Reactive Protein , Quantitative 20.6H, Pro-B-Type Natriuretic Peptide 5613H, Total Protein 6.2L, Albumin 1.9L, Globulin 4.3, Albumin/Globulin Ratio 0.4L 11/15/19 09:59: Arterial Blood pH 7.361, Arterial Blood Partial Pressure CO2 36.3, Arterial Blood Partial Pressure O2 90.5, Arterial Blood HCO3 20.1L, Arterial Blood Oxygen Saturation 95.8, Arterial Blood Base Excess -4.8L, Nasir Test Positive Height (Feet): 5 Height (Inches): 7.00 Weight (Pounds): 220 General Appearance: mild distress EENT: other - On nonrebreather mask Cardiovascular: normal rate Respiratory/Chest: decreased breath sounds Abdomen: distended Haim Yao MD November 15, 2019 12:16
[2019-11-15 16:00] VITALS: BP 121/51
[2019-11-15] MEDS: Nitroglycerin Patch 0.4mg TDERMAL SCH (16:00)
--- NOTE | 2019-11-15 16:00 | NUR ---
NURSE NOTES: Held Nitro patch d/t diastolic BP of 51.
--- NOTE | 2019-11-15 19:10 | NUR ---
NURSE NOTES: Received report from PHILL Abbasi. Patient asleep, afebrile and no respiratory distress noted.On NRB at 15 lpm tolerating well and Sat02 at 97-98%. With left FA 18G saline lock intact, asymptomatic and flushed.With Ramos catheter to urine bag intact and draining well. Provided warm comfort measures to patient. HOB elevated, bed wheels are locked and side rails are up. Needs were attended. Continue with plan of care
--- NOTE | 2019-11-15 19:20 | NUR ---
HAND-OFF: Report given to ALLEN POLLOCK.
[2019-11-15 20:00] VITALS: BP 133/56
[2019-11-15] MEDS: Iron Sucrose 100 MG in NS 55 ML IV SCH (20:17)
[2019-11-15] MEDS: Atorvastatin 20mg tab ORAL SCH (20:18)
[2019-11-16] VITALS: BP 129/54
--- NOTE | 2019-11-16 03:00 | Progress Note ---
DATE: 11/15/2019 SUBJECTIVE: The patient's condition remains tenuous. He is increasingly hypoxic requiring a non-rebreather mask. OBJECTIVE: VITAL SIGNS: Blood pressure 129/97 down to 117/75, heart rate 65 to 85, respiratory rate 20 and he is afebrile. T-max 99.8. LUNGS: Scattered rales. CARDIAC: Regular rhythm and rate. Normal S1, S2. ABDOMEN: Soft. EXTREMITIES: No edema. LABORATORY DATA: White count 5.7, hemoglobin 7.9. Sodium 133, potassium 5.6, bicarb 22, BUN 62, creatinine 3.5, glucose 235. Troponin 0.090. Pro-natriuretic peptide 5600. ABG 7.36, 36, 90. IMPRESSION: 1. Condition critical. 2. Prognosis guarded. 3. Possible COVID-19 infection. 4. Hypoxia and respiratory failure. 5. Acute on chronic renal failure. 6. Acute on chronic diastolic congestive heart failure. 7. Persistent elevation of troponin suggestive of ongoing myocardial ischemia. 8. Hypertensive heart disease with labile blood pressure. 9. Lymphopenia and anemia. 10. Diabetes mellitus with nephropathy. 11. History of cirrhosis of the liver. 12. Extremely high risk hyperkalemia now noted as well. PLAN: 1. Cardiac monitoring. 2. Kayexalate. 3. Oxygenation. 4. Respiratory hygiene. 5. Strict intake and output today. 6. Daily assessment for diuresis. 7. Antipyretics with acetaminophen. 8. Await COVID-19 results. 9. Continue isolation for now. 10. Epogen supplement. 11. Maintain beta-baljit and topical nitrates as needed. Jonah Griggs M.D. DR: TRENT JOB#: [id number] CC: JAYSHREE
[2019-11-16 04:00] VITALS: BP 132/57
[2019-11-16 05:50] LABS: HEMATOCRIT 23.2 % (42.0-52.0); MEAN CORPUSCULAR VOLUME 92 FL (80-99); PLATELET COUNT 132 K/UL (150-450); RED BLOOD COUNT 2.52 M/UL (4.70-6.10); RED CELL DISTRIBUTION WIDTH 13.4 % (11.6-14.8); WHITE BLOOD COUNT 9.5 K/UL (4.8-10.8)
[2019-11-16] MEDS: NovoLOG Insulin Flexpen SUBQ SCH ×4 (06:08→21:40)
[2019-11-16] MEDS: HydrALAZINE 10mg Tab ORAL SCH ×3 (06:10→22:00)
[2019-11-16 06:18] LABS: ANION GAP 12 mmol/L (5-15); BLOOD UREA NITROGEN 76 mg/dL (7-18); CALCIUM 7.7 MG/DL (8.5-10.1); CARBON DIOXIDE 22 MMOL/L (21-32); CHLORIDE 98 MMOL/L (98-107); CREATININE 3.5 MG/DL (0.55-1.30); POTASSIUM 4.4 MMOL/L (3.5-5.1); SODIUM 132 MMOL/L (136-145)
--- NOTE | 2019-11-16 07:20 | NUR ---
HAND-OFF: Report given to Erloy POLLOCK. Pt awake in bed, ON NRB tolerating well and saturating 96-97%.
[2019-11-16 08:00] VITALS: BP 104/63
--- NOTE | 2019-11-16 10:24 | Diagnostic Imaging Report ---
EXAM: XR Chest, 1 View CLINICAL HISTORY: ABN CHST TECHNIQUE: Frontal view of the chest. COMPARISON: November 13, 2019. FINDINGS: Enlarged cardiac silhouette. There is interval worsening of previously noted bilateral infiltrates. Low lung volumes. IMPRESSION: ARDS/multifocal pneumonia versus pulmonary edema, worse since prior. <MYCVCSECTION> Communications: 11/16/19 10:28 Call Nurse PHILL Lamine in step down on 11/15 10:28 (-07:00)
--- NOTE | 2019-11-16 10:24 | Pulmonology Progress Note ---
Subjective ROS Limited/Unobtainable: No Interval Events: Doing poorly Constitutional: Reports: no symptoms HEENT: Repors: no symptoms Respiratory: Reports: no symptoms Cardiovascular: Reports: no symptoms Gastrointestinal/Abdominal: Reports: no symptoms Genitourinary: Reports: no symptoms Allergies: Coded Allergies: No Known Allergies (Unverified , 11/13/19) Objective Last 24 Hour Vital Signs Date Time Temp Pulse Resp B/P (MAP) Pulse Ox O2 Delivery O2 Flow Rate FiO2 11/16/19 08:00 15.0 11/16/19 08:00 97.7 104 20 104/63 (77) 100 11/16/19 06:10 128/50 11/16/19 04:00 98.7 89 20 132/57 (82) 100 11/16/19 04:00 15.0 11/16/19 04:00 Non-Rebreather 15.0 11/16/19 03:34 85 11/16/19 00:00 Non-Rebreather 15.0 11/16/19 00:00 98.6 73 20 129/54 (79) 100 11/15/19 23:32 80 11/15/19 21:55 132/67 11/15/19 20:00 15.0 11/15/19 20:00 Non-Rebreather 15.0 11/15/19 20:00 97.3 73 20 133/56 (81) 100 11/15/19 19:21 70 11/15/19 16:00 Non-Rebreather 15.0 11/15/19 16:00 96.4 74 20 121/51 (74) 100 11/15/19 16:00 121/51 11/15/19 16:00 15.0 11/15/19 15:21 70 11/15/19 14:29 125/60 11/15/19 12:00 15.0 11/15/19 12:00 Non-Rebreather 15.0 11/15/19 12:00 98.0 85 20 145/93 (110) 95 11/15/19 11:37 60 Intake and Output 11/15/19 11/16/19 19:00 07:00 Intake Total 250 ml 560 ml Output Total 450 ml 750 ml Balance -200 ml -190 ml Intake Oral 250 ml 500 ml IV Total 60 ml Output Urine Total 450 ml 750 ml # Voids 1 # Bowel Movements 3 General Appearance: no acute distress HEENT: normocephalic Respiratory: chest wall non-tender, lungs clear Cardiovascular: normal peripheral pulses Abdomen: normal bowel sounds Laboratory Tests 11/16/19 03:20: Urine Eosinophils None seen 11/16/19 04:50: White Blood Count 9.5#, Red Blood Count 2.52L, Hemoglobin 8.0L, Hematocrit 23.2L , Mean Corpuscular Volume 92, Mean Corpuscular Hemoglobin 31.9H, Mean Corpuscular Hemoglobin Concent 34.5, Red Cell Distribution Width 13.4, Platelet Count 132L, Mean Platelet Volume 5.9L, Neutrophils (%) (Auto) , Lymphocytes (%) (Auto) , Monocytes (%) (Auto) , Eosinophils (%) (Auto) , Basophils (%) (Auto) , Differential Total Cells Counted 100, Neutrophils % (Manual) 89H, Lymphocytes % (Manual) 6L, Monocytes % (Manual) 5, Eosinophils % (Manual) 0, Basophils % ( Manual) 0, Band Neutrophils 0, Platelet Estimate DecreasedL, Platelet Morphology Normal, Hypochromasia 1+, Sodium Level 132L, Potassium Level 4.4, Chloride Level 98, Carbon Dioxide Level 22, Anion Gap 12, Blood Urea Nitrogen 76H, Creatinine 3.5H, Estimat Glomerular Filtration Rate 17.3, Glucose Level 281H, Calcium Level 7.7L 11/16/19 07:36: Arterial Blood pH 7.419, Arterial Blood Partial Pressure CO2 34.2L, Arterial Blood Partial Pressure O2 77.9, Arterial Blood HCO3 21.6L, Arterial Blood Oxygen Saturation 94.5L, Arterial Blood Base Excess -2.4L, Nasir Test Positive Current Medications Medications (Trade) Dose Ordered Sig/Raciel Route PRN Reason Start Time Stop Time Status Last Admin Dose Admin Acetaminophen (Tylenol) 650 mg Q6H PRN ORAL FEVER >100.5 11/13/19 21:45 12/13/19 21:44 11/14/19 01:56 Allopurinol (allopurinoL) 300 mg DAILY ORAL 11/14/19 09:00 12/14/19 08:59 11/15/19 09:06 Aspirin (ASA) 81 mg DAILY ORAL 11/14/19 09:00 12/29/19 08:59 11/15/19 09:05 Atorvastatin Calcium (Lipitor) 20 mg BEDTIME ORAL 11/13/19 21:00 02/11/20 20:59 11/15/19 20:18 Dextrose (Dextrose 50%) 25 ml Q30M PRN IV Hypoglycemia 11/13/19 15:15 02/11/20 15:14 Dextrose (Dextrose 50%) 50 ml Q30M PRN IV Hypoglycemia 11/13/19 15:15 02/11/20 15:14 Docusate Sodium (Colace) 100 mg THREE TIMES A DAY ORAL 11/13/19 18:00 12/13/19 17:59 11/15/19 14:29 Epoetin Jovi (Epoetin Jovi-EPBX(NON ESRD)) 10,000 unit SUBQ 11/16/19 21:00 02/14/20 20:59 Hydralazine HCl (Apresoline) 25 mg Q4H PRN ORAL Blood pressure over 160 systol 11/13/19 15:15 02/11/20 15:14 11/14/19 20:05 Hydralazine HCl (Apresoline) 25 mg Q8HR ORAL 11/15/19 06:00 02/13/20 05:59 11/16/19 06:10 Insulin Aspart (NovoLOG) BEFORE MEALS AND HS SUBQ 11/13/19 16:30 02/11/20 16:29 11/16/19 06:08 Iron Sucrose 100 mg/Sodium Chloride 60 ml @ 240 mls/hr BEDTIME IV 11/15/19 21:00 11/19/19 21:14 11/15/19 20:17 Nitroglycerin (Ntg) 1 patch Q24H TDERMAL 11/13/19 16:00 12/13/19 15:59 11/14/19 15:40 Pantoprazole (Protonix) 40 mg EVERY 12 HOURS ORAL 11/13/19 21:00 12/13/19 20:59 11/15/19 20:18 Propranolol HCl (Inderal) 20 mg BID ORAL 11/13/19 18:00 12/13/19 17:59 11/15/19 09:14 Tamsulosin HCl (Flomax) 0.4 mg BID ORAL 11/14/19 13:30 12/14/19 13:29 11/15/19 09:02 Vitamin D (Vitamin D) 2,000 intlu DAILY ORAL 11/14/19 09:00 12/14/19 08:59 11/15/19 09:06 Assessment/Plan Assessment/Plan IMPRESSION: 1. Hypoxemia; worsening 2. Prognosis guarded. 3. Possible COVID-19 pneumonia. 4. HTN 5. Acute myocardial ischemia. 6. Possible [id number]-akixfmeos myocardial infarction. 7. Acute diastolic congestive heart failure. 8. Chronic kidney disease. 9. Anemia of chronic kidney disease. 10. DM PLAN: Isolation for COVID-19. Cardiac monitoring. Diuresis. Acetaminophen for fevers. Oxygenation. Venous duplex scan. Echocardiogram. Trending of natriuretic peptide assay. Titrate anti-failure and antihypertensive. Diabetes care Juvenal Knapp M.D. Juvenal Knapp MD November 16, 2019 10:24
--- NOTE | 2019-11-16 10:35 | NUR ---
NURSE NOTES: Received call from [facility], spoke with Dr. Rodriguez who advised that patient's Xray today is worse than previous, possible ARDS. Called and left voicemail for Dr. Knapp notifying him. Awaiting call back.
[2019-11-16] MEDS: Vitamin D 1000 IU Tab ORAL SCH (10:46)
[2019-11-16] MEDS: Docusate 100mg cap ORAL SCH ×3 (10:47→18:13)
[2019-11-16] MEDS: Tamsulosin 0.4mg cap ORAL SCH ×2 (10:47→18:13)
[2019-11-16] MEDS: Aspirin Baby 81mg ORAL SCH (10:48)
[2019-11-16] MEDS: Propranolol 10mg tab ORAL SCH ×3 (10:48→22:00)
--- NOTE | 2019-11-16 10:55 | NUR ---
NURSE NOTES: Rapid response called d/t patient having sudden desaturation to 76% with good waveform while on non-rebreather at 100%.
--- NOTE | 2019-11-16 11:17 | NUR ---
RESPIRATORY NOTE: Rapid response was called. Pt was on non rebreather 100%. Pt was placed in CPAP 15 FIO2 100%. Pt ABG on non rebreather shows hypoxemia. Pt on CPAP shows no distress. Pt sating 99%. Will collect ABG in an hour. Will continue to monitor.
--- NOTE | 2019-11-16 11:17 | Nephrology Progress Note ---
Assessment/Plan Problem List: (1) Renal failure (ARF), acute on chronic (2) Hypoxemia (3) Suspected COVID-19 virus infection (4) Lymphopenia (5) Anemia in chronic kidney disease (CKD) (6) Hypertensive kidney disease (7) Elevated troponin I level (8) Diabetic nephropathy Assessment Chronic kidney disease stage III most likely due to diabetic nephropathy Diabetes mellitus, 4+ proteinuria Hypertension Presents with respiratory symptoms and exposure to COVID-19 virus Has lymphopenia and anemia Has hypoxia History of cirrhosis of the liver Elevated troponin Anemia of chronic kidney disease Plan Today's labs reviewed. Serum creatinine 3.5 stable. Adjust Inderal dosage Ramos catheter now for accurate intake and output Kayexalate for high potassium as needed IV iron Keep the blood pressure in check Check iron panel,, subcu Epogen ordered Pulmonary support Antibiotics, avoid nephrotoxic's Monitor renal parameters Urine studies Anemia work-up 24-hour urine for total protein and creatinine clearance, when serum creatinine is plateaued Per orders Subjective ROS Limited/Unobtainable: No Constitutional: Reports: malaise Objective Objective Last 24 Hour Vital Signs Date Time Temp Pulse Resp B/P (MAP) Pulse Ox O2 Delivery O2 Flow Rate FiO2 11/16/19 10:48 92 134/55 11/16/19 08:00 15.0 11/16/19 08:00 97.7 104 20 104/63 (77) 100 11/16/19 06:10 128/50 11/16/19 04:00 98.7 89 20 132/57 (82) 100 11/16/19 04:00 15.0 11/16/19 04:00 Non-Rebreather 15.0 11/16/19 03:34 85 11/16/19 00:00 Non-Rebreather 15.0 11/16/19 00:00 98.6 73 20 129/54 (79) 100 11/15/19 23:32 80 11/15/19 21:55 132/67 11/15/19 20:00 15.0 11/15/19 20:00 Non-Rebreather 15.0 11/15/19 20:00 97.3 73 20 133/56 (81) 100 11/15/19 19:21 70 11/15/19 16:00 Non-Rebreather 15.0 11/15/19 16:00 96.4 74 20 121/51 (74) 100 11/15/19 16:00 121/51 11/15/19 16:00 15.0 11/15/19 15:21 70 11/15/19 14:29 125/60 11/15/19 12:00 15.0 11/15/19 12:00 Non-Rebreather 15.0 11/15/19 12:00 98.0 85 20 145/93 (110) 95 11/15/19 11:37 60 Intake and Output 11/15/19 11/16/19 19:00 07:00 Intake Total 250 ml 560 ml Output Total 450 ml 750 ml Balance -200 ml -190 ml Intake Oral 250 ml 500 ml IV Total 60 ml Output Urine Total 450 ml 750 ml # Voids 1 # Bowel Movements 3 Laboratory Tests 11/16/19 03:20: Urine Eosinophils None seen 11/16/19 04:50: White Blood Count 9.5#, Red Blood Count 2.52L, Hemoglobin 8.0L, Hematocrit 23.2L , Mean Corpuscular Volume 92, Mean Corpuscular Hemoglobin 31.9H, Mean Corpuscular Hemoglobin Concent 34.5, Red Cell Distribution Width 13.4, Platelet Count 132L, Mean Platelet Volume 5.9L, Neutrophils (%) (Auto) , Lymphocytes (%) (Auto) , Monocytes (%) (Auto) , Eosinophils (%) (Auto) , Basophils (%) (Auto) , Differential Total Cells Counted 100, Neutrophils % (Manual) 89H, Lymphocytes % (Manual) 6L, Monocytes % (Manual) 5, Eosinophils % (Manual) 0, Basophils % ( Manual) 0, Band Neutrophils 0, Platelet Estimate DecreasedL, Platelet Morphology Normal, Hypochromasia 1+, Sodium Level 132L, Potassium Level 4.4, Chloride Level 98, Carbon Dioxide Level 22, Anion Gap 12, Blood Urea Nitrogen 76H, Creatinine 3.5H, Estimat Glomerular Filtration Rate 17.3, Glucose Level 281H, Calcium Level 7.7L 11/16/19 07:36: Arterial Blood pH 7.419, Arterial Blood Partial Pressure CO2 34.2L, Arterial Blood Partial Pressure O2 77.9, Arterial Blood HCO3 21.6L, Arterial Blood Oxygen Saturation 94.5L, Arterial Blood Base Excess -2.4L, Nasir Test Positive Height (Feet): 5 Height (Inches): 7.00 Weight (Pounds): 220 General Appearance: mild distress EENT: other - On nonrebreather mask Cardiovascular: tachycardia Respiratory/Chest: decreased breath sounds Abdomen: distended, other Haim Yao MD November 16, 2019 11:17
--- NOTE | 2019-11-16 11:22 | NUR ---
RAPID RESPONSE: Received call from Dr Knapp regarding rapid response. Notified him that patient SpO2 was 83% on 100% non-rebreather upon RR team arrival and patient stated that he is having repeat episodes of SOB. Patient placed on CPAP with pressure support 15 and FiO2 100%. Received telephone order for CPAP P.S. 15 100% FIO2 and Albuterol HHN Q6HR PRN for SOB. Orders read back, verified, and placed. Primary RN, Lamine, notified.
[2019-11-16] MEDS ORDERED: Albuterol ud Inhalation HHN PRN (11:30)
[2019-11-16 12:00] VITALS: BP 127/64
[2019-11-16] MEDS ORDERED: Albuterol 90mcg Inhaler 8gm INH PRN (12:30)
[2019-11-16] MEDS: Nitroglycerin Patch 0.4mg TDERMAL SCH (15:58)
[2019-11-16 16:00] VITALS: BP 127/64
--- NOTE | 2019-11-16 19:00 | NUR ---
HAND-OFF: Report given to Misael POLLOCK.
--- NOTE | 2019-11-16 19:30 | NUR ---
NURSE NOTES: Report received from PHILL Raman. Observed pt lying in the bed. SR on personnel monitor. On CPAP, 15/100%, sat at 96%. Abd soft, round. F/C intact and draining well. IV on L FA 18G, TKO. Bed in the lowest position. side rails up x3. Call light within reach. Will continue to monitor.
[2019-11-16 20:00] VITALS: BP 119/60
[2019-11-16] MEDS: Atorvastatin 20mg tab ORAL SCH (21:00)
[2019-11-16] MEDS: Epoetin Alfa-EPBX (NON ESRD)10,000 unit/ml vial SUBQ SCH (21:38)
[2019-11-16] MEDS: Iron Sucrose 100 MG in NS 55 ML IV SCH (21:38)
[2019-11-17] VITALS: BP 130/66
--- NOTE | 2019-11-17 00:04 | NUR ---
NURSE NOTES: Noted pt desaturating to 75% if cpap mask taken off within 30 seconds. Not tolerating PO meds, coughing noted with few sips of water. Will notify MD. Will continue to monitor.
--- NOTE | 2019-11-17 02:00 | Progress Note ---
DATE: 11/16/2019 CARDIOLOGY PROGRESS NOTE SUBJECTIVE: The patient remains increasingly hypoxic with respiratory distress. OBJECTIVE: VITAL SIGNS: Blood pressure 119/60, heart rate 100, respiratory rate 24, temperature 99.5, on BiPAP support. LUNGS: Bilateral breath sounds. Rhonchi. CARDIAC: Regular rhythm and rate. Normal S1, S2. ABDOMEN: Soft. EXTREMITIES: Trace edema. LABORATORY AND DIAGNOSTIC DATA: Monitor sinus and sinus tachycardia. White count 9.5, hemoglobin 8. Sodium 132, potassium 4.4, BUN 76, creatinine 3.5. ABG 7.39, 33, 150, on BiPAP. Chest x-ray with ARDS, COVID-19 positive. IMPRESSION: 1. COVID-19 pneumonia. 2. ARDS. 3. Respiratory failure. 4. Hypoxia. 5. Acute on chronic renal failure. 6. Acute on chronic diastolic congestive heart failure. 7. Acute myocardial ischemia. 8. Critical and guarded. PLAN: 1. Plan of care reviewed and updated. 2. Discussed with consulting staff and medication regimen adjusted based on clinical parameters. 3. For now, we will discontinue statin drug as well as topical nitrates. Jonah Griggs M.D. DR: ADILSON JOB#: [id number] CC:
[2019-11-17 04:00] VITALS: BP 111/82
[2019-11-17] MEDS: HydrALAZINE 10mg Tab ORAL SCH (05:51)
[2019-11-17] MEDS: Propranolol 10mg tab ORAL SCH ×3 (05:52→22:00)
[2019-11-17] MEDS: NovoLOG Insulin Flexpen SUBQ SCH ×4 (06:35→21:00)
--- NOTE | 2019-11-17 06:50 | NUR ---
NURSE NOTES: Left a message to regarding pt not tolerating po meds. Awaiting call back.
--- NOTE | 2019-11-17 07:15 | NUR ---
NURSE NOTES: Received patient and report from PHILL Conte. Patient is observed resting in bed and remains alert and oriented x4. No pain noted upon assessment. Pt is currently on BiPap 15/5 FiO2 100% with an o2 saturation of 99% noted. SOB noted upon exertion and at rest, rales and diminished breath sounds noted upon auscultation. Pt noted to be in Afib on tele monitor with a current HR of 103 noted, no s/sx of acute distress. Ramos catheter noted which remains intact, patent and draining yellow urine to gravity. L FA 18g IV catheter remains intact, patent and asymptomatic. Diagnostics reviewed. Skin remains intact, redness on bridge of nose noted r/t Bipap mask. Fall, Aspiration and Skin precautions observed. Pt remains resting in bed; Bed remains in the lowest position with the safety wheels engaged, call light within reach, side rails up x3 and bed alarm activated. Will continue plan of care. Will continue to monitor.
--- NOTE | 2019-11-17 07:29 | NUR ---
HAND-OFF: Report given to PHILL Deutsch.
--- NOTE | 2019-11-17 07:57 | NUR ---
NURSE NOTES: Dr Knapp called back; discussed current pt status and plan of care. Obtained order for ABG, CBC/BMP and chest xray Physician is aware that pt not tolerating PO fluids and food without desaturating.
[2019-11-17 08:00] VITALS: BP 118/62
--- NOTE | 2019-11-17 08:10 | NUR ---
NURSE NOTES: Spoke with radiology to confirm chest x-ray to be taken at bedside. Will carry out order.
--- NOTE | 2019-11-17 08:16 | NUR ---
NURSE NOTES: Called and spoke with laboratory- unsuccessful lab draw attempt Lab to come draw CBC/BMP as ordered Called and spoke with RT to confirm STAT ABG
--- NOTE | 2019-11-17 08:32 | NUR ---
NURSE NOTES: Pt currently unable to tolerate PO fluids and refuses medication administration at this time. Pt noted to desaturate to 73% when attempting to take sips of water. Pt unable to use non-rebreather mask to allow for meals. Pt refuses breakfast at this time. Pt provided education but continues to refuse. Will continue to monitor.
[2019-11-17] MEDS: Aspirin Baby 81mg ORAL SCH (09:00)
[2019-11-17] MEDS: Tamsulosin 0.4mg cap ORAL SCH (09:00)
[2019-11-17] MEDS: Docusate 100mg cap ORAL SCH ×3 (09:00→17:48)
[2019-11-17] MEDS: Vitamin D 1000 IU Tab ORAL SCH (09:00)
[2019-11-17 09:04] LABS: HEMATOCRIT 22.6 % (42.0-52.0); HEMOGLOBIN 7.8 G/DL (14.2-18.0); MEAN CORPUSCULAR VOLUME 92 FL (80-99); PLATELET COUNT 119 K/UL (150-450); RED BLOOD COUNT 2.46 M/UL (4.70-6.10); RED CELL DISTRIBUTION WIDTH 13.6 % (11.6-14.8); WHITE BLOOD COUNT 12.5 K/UL (4.8-10.8)
[2019-11-17 09:14] LABS: ANION GAP 12 mmol/L (5-15); BLOOD UREA NITROGEN 87 mg/dL (7-18); CALCIUM 7.7 MG/DL (8.5-10.1); CARBON DIOXIDE 23 MMOL/L (21-32); CHLORIDE 98 MMOL/L (98-107); CREATININE 4.2 MG/DL (0.55-1.30); POTASSIUM 4.6 MMOL/L (3.5-5.1); SODIUM 133 MMOL/L (136-145)
--- NOTE | 2019-11-17 09:20 | NUR ---
NURSE NOTES: Spoke with RT regarding offloading pressure from Bipap mask; unable to switch to full face mask as pt is unable to tolerate it due to extreme anxiety. Foam tape replaced by RT. FiO2 titrated to 90% pt tolerating at this time.
[2019-11-17 09:24] LABS: ALANINE AMINOTRANSFERASE 13 U/L (12-78); ALBUMIN 1.7 G/DL (3.4-5.0); ALBUMIN/GLOBULIN RATIO 0.4 (1.0-2.7); ALKALINE PHOSPHATASE 156 U/L (46-116); ASPARTATE AMINO TRANSFERASE 74 U/L (15-37)
[2019-11-17 09:26] LABS: BILIRUBIN,DIRECT 1.3 MG/DL (0.0-0.3)
--- NOTE | 2019-11-17 10:00 | Diagnostic Imaging Report ---
Indication: Shortness of breath Technique: One view of the chest Comparison: 11/16/2019 Findings: Again demonstrated is bilateral interstitial and airspace disease, stable or perhaps slightly improved. The heart size is upper limits of normal. Impression: Extensive bilateral parenchymal infiltrates versus edema, stable or perhaps slightly improved since prior study of one day earlier
--- NOTE | 2019-11-17 10:15 | NUR ---
NURSE NOTES: Dr Knapp present at bedside to assess patient; discussed pt's current condition as well as morning labs (hgb 7.8, Na 133 and ABG/Chest RAD results) No additional orders at this time. Will continue to monitor.
--- NOTE | 2019-11-17 10:25 | NUR ---
RADIOLOGY DEPT., CHEST X-RAY DONE.-P.DYE
--- NOTE | 2019-11-17 10:58 | Pulmonology Progress Note ---
Subjective ROS Limited/Unobtainable: No Interval Events: Doing poorly Constitutional: Reports: no symptoms HEENT: Repors: no symptoms Respiratory: Reports: no symptoms Cardiovascular: Reports: no symptoms Gastrointestinal/Abdominal: Reports: no symptoms Genitourinary: Reports: no symptoms Allergies: Coded Allergies: No Known Allergies (Unverified , 11/13/19) Objective Last 24 Hour Vital Signs Date Time Temp Pulse Resp B/P (MAP) Pulse Ox O2 Delivery O2 Flow Rate FiO2 11/17/19 08:48 94 11/17/19 08:27 96 17 100 100 11/17/19 08:00 99.1 110 22 118/62 (80) 98 11/17/19 08:00 100 11/17/19 08:00 Bi-pap 15.0 Bi-pap 15.0 11/17/19 05:52 100 111/82 11/17/19 05:51 111/82 11/17/19 04:00 108 11/17/19 04:00 98.7 100 24 111/82 (92) 100 11/17/19 04:00 Bi-pap 15.0 11/17/19 04:00 80 11/17/19 03:42 106 17 98 100 11/17/19 00:00 101 11/17/19 00:00 99.8 101 24 130/66 (87) 100 11/17/19 00:00 Bi-pap 15.0 11/16/19 23:49 103 22 100 80 11/16/19 21:14 80 11/16/19 20:00 Bi-pap 15.0 11/16/19 20:00 99.5 100 24 119/60 (79) 100 11/16/19 19:42 86 21 96 80 11/16/19 19:01 92 11/16/19 17:05 97 23 95 80 11/16/19 16:00 Non-Rebreather 15.0 11/16/19 16:00 87 11/16/19 16:00 97.9 86 24 127/64 (85) 100 11/16/19 16:00 80 11/16/19 15:58 129/61 11/16/19 14:36 91 18 98 80 11/16/19 12:00 90 11/16/19 12:00 100 11/16/19 12:00 97.9 83 24 127/64 (85) 100 11/16/19 12:00 Non-Rebreather 15.0 11/16/19 11:12 94 22 99 100 Intake and Output 11/16/19 11/17/19 19:00 07:00 Intake Total 250 ml 500 ml Output Total 900 ml 300 ml Balance -650 ml 200 ml Intake Oral 250 ml 500 ml Output Urine Total 900 ml 300 ml # Voids 1 # Bowel Movements 2 HEENT: normocephalic Respiratory: chest wall non-tender Cardiovascular: normal peripheral pulses Abdomen: normal bowel sounds Laboratory Tests 11/16/19 12:27: Arterial Blood pH 7.389, Arterial Blood Partial Pressure CO2 33.5L, Arterial Blood Partial Pressure O2 153.7H, Arterial Blood HCO3 19.8L, Arterial Blood Oxygen Saturation 98.5, Arterial Blood Base Excess -4.6L, Nasir Test Positive 11/17/19 08:25: Arterial Blood pH 7.375, Arterial Blood Partial Pressure CO2 35.3, Arterial Blood Partial Pressure O2 171.2H, Arterial Blood HCO3 20.2L, Arterial Blood Oxygen Saturation 98.8, Arterial Blood Base Excess -4.5L, Nasir Test Positive 11/17/19 08:40: White Blood Count 12.5H, Red Blood Count 2.46L, Hemoglobin 7.8L, Hematocrit 22.6L, Mean Corpuscular Volume 92, Mean Corpuscular Hemoglobin 31.8H, Mean Corpuscular Hemoglobin Concent 34.5, Red Cell Distribution Width 13.6, Platelet Count 119L, Mean Platelet Volume 5.7L, Neutrophils (%) (Auto) , Lymphocytes (%) (Auto) , Monocytes (%) (Auto) , Eosinophils (%) (Auto) , Basophils (%) (Auto) , Neutrophils % (Manual) [Pending], Lymphocytes % (Manual) [Pending], Platelet Estimate [Pending], Platelet Morphology [Pending], Sodium Level 133L, Potassium Level 4.6, Chloride Level 98, Carbon Dioxide Level 23, Anion Gap 12, Blood Urea Nitrogen 87H, Creatinine 4.2H, Estimat Glomerular Filtration Rate 14.0, Glucose Level 265H, Calcium Level 7.7L, Total Bilirubin 2.0H, Direct Bilirubin 1.3H, Aspartate Amino Transf (AST/SGOT) 74H, Alanine Aminotransferase (ALT/SGPT) 13, Alkaline Phosphatase 156H, Total Protein 6.0L, Albumin 1.7L, Globulin 4.3, Albumin/Globulin Ratio 0.4L Current Medications Medications (Trade) Dose Ordered Sig/Raciel Route PRN Reason Start Time Stop Time Status Last Admin Dose Admin Acetaminophen (Tylenol) 650 mg Q6H PRN ORAL FEVER >100.5 11/13/19 21:45 12/13/19 21:44 11/14/19 01:56 Albuterol Sulfate (Proventil MDI) 2 puff Q4H PRN INH Shortness of Breath 11/16/19 12:30 02/14/20 12:29 11/16/19 12:49 Allopurinol (allopurinoL) 300 mg DAILY ORAL 11/14/19 09:00 12/14/19 08:59 11/16/19 10:46 Aspirin (ASA) 81 mg DAILY ORAL 11/14/19 09:00 12/29/19 08:59 11/16/19 10:48 Dextrose (Dextrose 50%) 25 ml Q30M PRN IV Hypoglycemia 11/13/19 15:15 02/11/20 15:14 Dextrose (Dextrose 50%) 50 ml Q30M PRN IV Hypoglycemia 11/13/19 15:15 02/11/20 15:14 Docusate Sodium (Colace) 100 mg THREE TIMES A DAY ORAL 11/13/19 18:00 12/13/19 17:59 11/16/19 18:13 Epoetin Jovi (Epoetin Jovi-EPBX(NON ESRD)) 10,000 unit SAT-SAT-SAT SUBQ 11/16/19 21:00 02/14/20 20:59 11/16/19 21:38 Hydralazine HCl (Apresoline) 25 mg Q4H PRN ORAL Blood pressure over 160 systol 11/13/19 15:15 02/11/20 15:14 11/14/19 20:05 Hydralazine HCl (Apresoline) 25 mg Q8HR ORAL 11/15/19 06:00 02/13/20 05:59 11/16/19 06:10 Insulin Aspart (NovoLOG) BEFORE MEALS AND HS SUBQ 11/13/19 16:30 02/11/20 16:29 11/17/19 06:35 Iron Sucrose 100 mg/Sodium Chloride 60 ml @ 240 mls/hr BEDTIME IV 11/15/19 21:00 11/19/19 21:14 11/16/19 21:38 Pantoprazole (Protonix) 40 mg EVERY 12 HOURS ORAL 11/13/19 21:00 12/13/19 20:59 11/16/19 10:47 Propranolol HCl (Inderal) 20 mg Q8HR ORAL 11/16/19 14:00 12/13/19 17:59 Tamsulosin HCl (Flomax) 0.4 mg BID ORAL 11/14/19 13:30 12/14/19 13:29 11/16/19 18:13 Vitamin D (Vitamin D) 2,000 intlu DAILY ORAL 11/14/19 09:00 12/14/19 08:59 11/16/19 10:46 Assessment/Plan Assessment/Plan IMPRESSION: 1. Hypoxemia; worsening 2. Prognosis guarded. 3. Confirmed COVID-19 pneumonia. 4. HTN 5. Acute myocardial ischemia. 6. Possible [id number] myocardial infarction. 7. Acute diastolic congestive heart failure. 8. Chronic kidney disease. 9. Anemia of chronic kidney disease. 10. DM PLAN: Isolation for COVID-19. Cardiac monitoring. Diuresis; will start Lasix gtt. Acetaminophen for fevers. Oxygenation. Diabetes care ID consult for Actemra/Remdesiver Juvenal Knapp M.D. Juvenal Knapp MD November 17, 2019 10:58
[2019-11-17] MEDS ORDERED: Hydroxychloroquine Fact Sheet MISC ONE (11:15)
--- NOTE | 2019-11-17 11:15 | NUR ---
NURSE NOTES: Pt currently unable to tolerate PO fluids and refuses medication administration at this time. Pt noted to desaturate to 81% when attempting to take sips of water. Pt unable to use non-rebreather mask to allow for meals. Pt refuses lunch at this time. Bedside blood glucose noted to be 224 mg/dL insulin held as pt declines and to prevent hypoglycemia. Pt provided education but continues to refuse. Will continue to monitor.
--- NOTE | 2019-11-17 11:29 | NUR ---
RESPIRATORY NOTE: adjusted mask to relieve pressure on pt's face. slight redness/irritation on the bridge of pt's nose and replaced foam tape barrier. pt became SOB and saturation quickly decreased when mask was removed. adjusted to fit pt's mask with minimal leak. pt was able to catch his breath. RN notified and fundraising manager notified
[2019-11-17 12:00] VITALS: BP 122/66
--- NOTE | 2019-11-17 12:01 | Nephrology Progress Note ---
Assessment/Plan Problem List: (1) Renal failure (ARF), acute on chronic (2) Hypoxemia (3) Suspected COVID-19 virus infection (4) Lymphopenia (5) Anemia in chronic kidney disease (CKD) (6) Hypertensive kidney disease (7) Elevated troponin I level (8) Diabetic nephropathy Assessment Chronic kidney disease stage III most likely due to diabetic nephropathy Diabetes mellitus, 4+ proteinuria Hypertension Presents with respiratory symptoms and exposure to COVID-19 virus Has lymphopenia and anemia Has hypoxia History of cirrhosis of the liver Elevated troponin Anemia of chronic kidney disease Plan November 16: Patient's clinical condition is deteriorating. Serum creatinine rising. Respiratory status worsening. All the data reviewed. Further worsening the renal parameters may may lead to initiation of dialysis. Continue per consultants. Discussed with Dr. Knapp. Regarding Lasix drip that the patient is on now versus anticoagulation. Previously: Adjust Inderal dosage Ramos catheter now for accurate intake and output Kayexalate for high potassium as needed IV iron Keep the blood pressure in check Check iron panel,, subcu Epogen ordered Pulmonary support Antibiotics, avoid nephrotoxic's Monitor renal parameters Urine studies Anemia work-up 24-hour urine for total protein and creatinine clearance, when serum creatinine is plateaued Per orders Subjective Constitutional: Reports: malaise, weakness Objective Objective Last 24 Hour Vital Signs Date Time Temp Pulse Resp B/P (MAP) Pulse Ox O2 Delivery O2 Flow Rate FiO2 11/17/19 11:27 101 19 99 90 11/17/19 08:48 94 11/17/19 08:27 96 17 100 100 11/17/19 08:00 99.1 110 22 118/62 (80) 98 11/17/19 08:00 100 11/17/19 08:00 Bi-pap 15.0 Bi-pap 15.0 11/17/19 05:52 100 111/82 11/17/19 05:51 111/82 11/17/19 04:00 108 11/17/19 04:00 98.7 100 24 111/82 (92) 100 11/17/19 04:00 Bi-pap 15.0 11/17/19 04:00 80 11/17/19 03:42 106 17 98 100 11/17/19 00:00 101 11/17/19 00:00 99.8 101 24 130/66 (87) 100 11/17/19 00:00 Bi-pap 15.0 11/16/19 23:49 103 22 100 80 11/16/19 21:14 80 11/16/19 20:00 Bi-pap 15.0 11/16/19 20:00 99.5 100 24 119/60 (79) 100 11/16/19 19:42 86 21 96 80 11/16/19 19:01 92 11/16/19 17:05 97 23 95 80 11/16/19 16:00 Non-Rebreather 15.0 11/16/19 16:00 87 11/16/19 16:00 97.9 86 24 127/64 (85) 100 11/16/19 16:00 80 11/16/19 15:58 129/61 11/16/19 14:36 91 18 98 80 11/16/19 12:00 90 11/16/19 12:00 100 11/16/19 12:00 97.9 83 24 127/64 (85) 100 11/16/19 12:00 Non-Rebreather 15.0 Intake and Output 11/16/19 11/17/19 19:00 07:00 Intake Total 250 ml 500 ml Output Total 900 ml 300 ml Balance -650 ml 200 ml Intake Oral 250 ml 500 ml Output Urine Total 900 ml 300 ml # Voids 1 # Bowel Movements 2 Laboratory Tests 11/16/19 12:27: Arterial Blood pH 7.389, Arterial Blood Partial Pressure CO2 33.5L, Arterial Blood Partial Pressure O2 153.7H, Arterial Blood HCO3 19.8L, Arterial Blood Oxygen Saturation 98.5, Arterial Blood Base Excess -4.6L, Nasir Test Positive 11/17/19 08:25: Arterial Blood pH 7.375, Arterial Blood Partial Pressure CO2 35.3, Arterial Blood Partial Pressure O2 171.2H, Arterial Blood HCO3 20.2L, Arterial Blood Oxygen Saturation 98.8, Arterial Blood Base Excess -4.5L, Nasir Test Positive 11/17/19 08:40: White Blood Count 12.5H, Red Blood Count 2.46L, Hemoglobin 7.8L, Hematocrit 22.6L, Mean Corpuscular Volume 92, Mean Corpuscular Hemoglobin 31.8H, Mean Corpuscular Hemoglobin Concent 34.5, Red Cell Distribution Width 13.6, Platelet Count 119L, Mean Platelet Volume 5.7L, Neutrophils (%) (Auto) , Lymphocytes (%) (Auto) , Monocytes (%) (Auto) , Eosinophils (%) (Auto) , Basophils (%) (Auto) , Differential Total Cells Counted 100, Neutrophils % (Manual) 92H, Lymphocytes % (Manual) 4L, Monocytes % (Manual) 4, Eosinophils % (Manual) 0, Basophils % ( Manual) 0, Band Neutrophils 0, Platelet Estimate DecreasedL, Platelet Morphology Normal, Hypochromasia 1+, Anisocytosis 1+, Sodium Level 133L, Potassium Level 4.6, Chloride Level 98, Carbon Dioxide Level 23, Anion Gap 12, Blood Urea Nitrogen 87H, Creatinine 4.2H, Estimat Glomerular Filtration Rate 14.0, Glucose Level 265H, Calcium Level 7.7L, Total Bilirubin 2.0H, Direct Bilirubin 1.3H, Aspartate Amino Transf (AST/SGOT) 74H, Alanine Aminotransferase (ALT/SGPT) 13, Alkaline Phosphatase 156H, Total Protein 6.0L, Albumin 1.7L, Globulin 4.3, Albumin/Globulin Ratio 0.4L Height (Feet): 5 Height (Inches): 7.00 Weight (Pounds): 220 General Appearance: mild distress EENT: other - On BiPAP Cardiovascular: tachycardia Respiratory/Chest: decreased breath sounds Abdomen: distended Haim Yao MD November 17, 2019 12:01
--- NOTE | 2019-11-17 12:02 | NUR ---
NURSE NOTES: 12 lead EKG performed prior to administration of Plaquenil as ordered. 12 lead shows no change from previous rhythm strip (AFib). Pt provided education and medication fact sheet. Pt requests to continue with plan of care. Witnessed pt signature on consent form for non-tunneled dialysis catheter placement.
[2019-11-17] MEDS: HydrALAZINE 25mg tab ORAL SCH ×2 (13:23→22:00)
--- NOTE | 2019-11-17 14:00 | NUR ---
NURSE NOTES: Pt SBP <110 blood pressure medications held at this time to prevent hypotension. Will continue to monitor.
--- NOTE | 2019-11-17 15:47 | NUR ---
RESPIRATORY NOTE: asked pt if he would like to switch to a full face make while using CPAP, but stated he is claustrophobic. explained and educated pt on reasoning. he states he is still ok on current partial mask and that foam tape needs to stay on and intact.
--- NOTE | 2019-11-17 15:55 | NUR ---
NURSE NOTES: Spoke with next of kin who called for an update. Discussed morning labs, initiation of plaquenil and plan of placement of non-tunneled dialysis catheter. Family states that patient typically needs blood transfusion once a year and no prior reactions have been noted. Family aware pt is on Bipap. Will continue to monitor.
[2019-11-17 16:00] VITALS: BP 125/56
--- NOTE | 2019-11-17 16:42 | NUR ---
CASE MANAGEMENT: REVIEW SI: ACUTE RENAL ON CHRONIC FAILURE . COVID-19 T 99.1 HR 110 RR 22 BP 118/62 SAT 98% BIPAP FLOW RATE 15.0 FIO2 100 WBC 12.5 H/H 7.8/22.6 NA 133 BUN 87 CR 4.2 IS: VENOFER IV QHS LASIX 100ML @ 10ML/HR NOVOLOG SUBQ AC+HS EPOETIN SUBQ MWF STEP DOWN UNIT STATUS DCP: PATIENT IS FROM HOME
--- NOTE | 2019-11-17 17:07 | NUR ---
*-* INSURANCE *-* ALL CLINICALS AND REVIEWS HAVE BEEN FAXED TO: [facility] AUTH#: [id number] FAX DAILY CLINICALS TO [phone]. PHONE: [phone] OPT 1
--- NOTE | 2019-11-17 18:13 | NUR ---
NURSE NOTES: Pt refusing dinner; pt states that it is too difficult to eat right now. Pt tolerating one small sip of water at a time with rest periods. Insulin held to prevent hypoglycemic episode as pt is refusing to eat/drink juice. Will continue to monitor.
--- NOTE | 2019-11-17 18:30 | Consultation ---
DATE OF CONSULTATION: 11/17/2019 INFECTIOUS DISEASE CONSULTATION CONSULTING PHYSICIAN: Iman Diego MD REFERRING PHYSICIAN: Juvenal Knapp M.D. REASON FOR CONSULTATION: COVID-19 pneumonia. HISTORY OF PRESENTING ILLNESS: This is a 74-year-old gentleman with history of cirrhosis, renal failure, diabetes, hypertension, congestive heart failure, esophagitis, who came in with shortness of breath, fatigue, and syncope. He was tested to be COVID-19 positive and an Infectious Diseases consultation has been obtained for antibiotics. PAST MEDICAL HISTORY: 1. History of diabetes. 2. Hypertension. 3. Congestive heart failure. 4. Esophagitis. 5. Chronic kidney disease. 6. Cirrhosis. SOCIAL HISTORY: He does not smoke, drink, or use drugs. FAMILY HISTORY: Noncontributory. REVIEW OF SYSTEMS: Unable to obtain currently as he is on a BiPAP. MEDICATIONS: As an inpatient, he is on Lasix, Epogen, Inderal, albuterol, iron sucrose, hydralazine, Flomax, allopurinol, aspirin, vitamin D, Tylenol, Protonix, docusate, insulin. ALLERGIES: No known drug allergies. PHYSICAL EXAMINATION: VITAL SIGNS: Temperature of 99.1, T-max of 99.8, pulse of 94, respiratory rate of 17, blood pressure 118/62. He is on a BiPAP of 15 liters and O2 saturation 100%. Examination deferred due to COVID-19. LABORATORY AND DIAGNOSTIC DATA: White count 12.5, hemoglobin 7.8, hematocrit 22.6, MCV 92, platelet count of 119. Sodium 133, potassium 4.6, chloride 98, bicarb 23, BUN 87, creatinine 4.2, glucose 265, calcium 7.7. Total bilirubin 2, direct bilirubin 1.3, AST 74, ALT 13, alkaline phosphatase 156, total protein 6, albumin 1.7. Blood cultures are negative 522. COVID-19 test is positive. Chest x-ray is showing extensive bilateral parenchymal infiltrates versus edema, slightly improved. ASSESSMENT: This is a 74-year-old gentleman with history of diabetes, hypertension, cirrhosis, renal failure, who comes in with shortness of breath and is found to have: 1. COVID-19 pneumonia. His family members also tested positive. 2. Diabetes. 3. Hypertension. 4. Renal failure. 5. Congestive heart failure. 6. Cirrhosis. PLAN: 1. We will start the patient on hydroxychloroquine. 2. We will also start the patient on Ivermectin. The patient is agreeable to it. 3. Continue isolation. 4. We will follow up the patient clinically. I would like to thank Dr. Knapp for this consultation. Iman Diego M.D. DR: Augusta JOB#: [id number] CC: Juvenal Knapp M.D.
--- NOTE | 2019-11-17 18:53 | NUR ---
HAND-OFF: Report given to PHILL Velasquez. Endorsed plan of care. Addendum: 11/17/19 at 1902 by SILVANA ABRAHAM RN HAND-OFF: Report given to PHILL Simms. Endorsed plan of care.
--- NOTE | 2019-11-17 19:15 | NUR ---
NURSE NOTES: Received pt from Randal Yanez RN. pt is observed in bed, AO X3-4, able to respond to verbal commands, denies pain at this time. pt is on BiPAP, with settings of 15/5, FiO2: 80%; saturation: 93%; SOB noted at rest. business law professor shows A-fib with HR between 107-111. no acute cardiac distress noted. F/C is patent and intact, draining to gravity. LFA 18 G IV site is patent and intact, asymptomatic. bed in lowest position and locked, siderails up X3, call light within reach. will continue to monitor. Addendum: 11/17/19 at 2238 by JOESPH BOWDEN RN RN NURSE NOTES: pt is on c-pap
[2019-11-17 20:00] VITALS: BP 123/57
[2019-11-17] MEDS: Iron Sucrose 100 MG in NS 55 ML IV SCH (21:58)
[2019-11-18] VITALS (7 sets, daily range): BP systolic 104–130; BP diastolic 48–95
[2019-11-18] MEDS: Propranolol 10mg tab ORAL SCH ×3 (06:00→22:00)
[2019-11-18] MEDS: HydrALAZINE 25mg tab ORAL SCH ×3 (06:00→22:00)
--- NOTE | 2019-11-18 06:07 | NUR ---
NURSE NOTES: pt refused all scheduled meds for 0600, including insulin. glucose was 250, pt refused insulin coverage; pt has been refusing food and juice as well. will inform MD of pt's refusal to eat.
[2019-11-18] MEDS: NovoLOG Insulin Flexpen SUBQ SCH ×4 (06:30→21:00)
--- NOTE | 2019-11-18 07:10 | NUR ---
NURSE NOTES:RECEIVED REPORT FROM JOESPH POLLOCK OF [employer]. RECEIVED PT ON DROPLET PRECAUTION ISOLATION ROOM ,POSITIVE COVID-19.RECEIVED PT WITH HOB ELEVATED 45 DEGREE.PT AWAKE & ALERT ,USING C-PAP 15/5 FIO2 @ 90%.PT O2 SAT 93%. .PT REPOSITIONED IN BED TO PROVIDE COMFORT AND TO PREVENT SKIN SALVADOR DOWN.PT ON SCHEDULE FOR NON-TUNNELED CATH PLACEMENT TODAY. FULL BODY ASSESSMENT DONE. PT RECEIVING LASIX DRIP @ 10CC/HRS CONNECTED ON LT FA G#[id number],INFUSING WELL .WILL CONT TO MONITOR.
[2019-11-18 07:11] LABS: HEMATOCRIT 21.2 % (42.0-52.0); HEMOGLOBIN 7.1 G/DL (14.2-18.0); MEAN CORPUSCULAR VOLUME 92 FL (80-99); PLATELET COUNT 104 K/UL (150-450); RED BLOOD COUNT 2.29 M/UL (4.70-6.10); RED CELL DISTRIBUTION WIDTH 13.7 % (11.6-14.8); WHITE BLOOD COUNT 14.3 K/UL (4.8-10.8)
[2019-11-18 07:28] LABS: INR 1.2 (0.9-1.1)
--- NOTE | 2019-11-18 07:44 | NUR ---
HAND-OFF: Report given to PHILL Paulino. endorsed plan of care.
[2019-11-18 08:35] LABS: ALANINE AMINOTRANSFERASE 36 U/L (12-78); ALBUMIN 1.6 G/DL (3.4-5.0); ALBUMIN/GLOBULIN RATIO 0.4 (1.0-2.7); ALKALINE PHOSPHATASE 200 U/L (46-116); ANION GAP 12 mmol/L (5-15); ASPARTATE AMINO TRANSFERASE 150 U/L (15-37); BILIRUBIN,TOTAL 2.7 MG/DL (0.2-1.0); BLOOD UREA NITROGEN 101 mg/dL (7-18); CALCIUM 7.6 MG/DL (8.5-10.1); CARBON DIOXIDE 22 MMOL/L (21-32); CHLORIDE 100 MMOL/L (98-107); CREATININE 4.9 MG/DL (0.55-1.30); PHOSPHORUS 6.3 MG/DL (2.5-4.9); POTASSIUM 4.5 MMOL/L (3.5-5.1); SODIUM 134 MMOL/L (136-145)
[2019-11-18 08:37] LABS: BILIRUBIN,DIRECT 2.2 MG/DL (0.0-0.3)
--- NOTE | 2019-11-18 08:41 | NUR ---
RD ASSESSMENT & RECOMMENDATIONS SEE CARE ACTIVITY FOR COMPLETE ASSESSMENT DAILY ESTIMATED NEEDS: Needs based on Renal/ no HD, pulmonary 75.5kg abw 25-30 kcals/kg [id number] total kcals .8-1.2 g protein/kg 60-91 g total protein Fluid per MD, on HD NUTRITION DIAGNOSIS: Altered nutrition related lab values r/t clinical status as evidenced by elev BG (200's), elev BUN(87), elev Creat(4.2), low Hgb (7.1). CURRENT DIET: CCHO MED/ RENAL MS CHOPPED PO DIET RECOMMENDATIONS: CCHO MED/ LOW NA - texture per STEAM TRAIN DRIVER ADDITIONAL RECOMMENDATIONS: 1) Poor po intake w/ bipap, rec STEAM TRAIN DRIVER eval Enteral feeds if medically appropriate 2) On lasix, calibrate bed scale daily for daily weights 3) Monitor for HD initiation 4) Add NEPRO TID w/ meals
--- NOTE | 2019-11-18 09:15 | Progress Note ---
DATE: 11/17/2019 CARDIOLOGY PROGRESS NOTE SUBJECTIVE: The patient continues to have congestion, shortness of breath, and hypoxia. He is being started on therapy for COVID-19 pneumonia, specifically hydroxychloroquine. OBJECTIVE: VITAL SIGNS: Blood pressure 118/62, pulse 110, respirations 22, temperature 99.5 max. LUNGS: Bilateral breath sounds with rhonchi. CARDIAC: Regular rhythm. Rapid rate. Normal S1 and S2. ABDOMEN: Soft. EXTREMITIES: Trace edema. LABORATORY DATA: White count 12 and hemoglobin 7.8. Sodium 133, BUN 87, creatinine 4.2, and albumin 1.7. IMPRESSION: 1. COVID-19 pneumonia. 2. Sinus tachycardia. 3. Acute myocardial ischemia. 4. Hyponatremia. 5. Acute on chronic renal failure. 6. Severe protein-calorie malnutrition. 7. Severe anemia. PLAN: 1. Continue current antihypertensives. 2. Continue cardiac monitoring. 3. Check and monitor QTc interval while on hydroxychloroquine. 4. Reassess therapy if increases towards 500 milliseconds. 5. for dialysis. 6. Condition is critical. Prognosis guarded. 7. The patient continues on oxygenation, respiratory therapy, and antivirals. Jonah Griggs M.D. DR: JOHNNY JOB#: [id number] CC:
[2019-11-18] MEDS: Aspirin Baby 81mg ORAL SCH (09:34)
[2019-11-18] MEDS: Docusate 100mg cap ORAL SCH ×3 (09:34→16:53)
[2019-11-18] MEDS: Vitamin D 1000 IU Tab ORAL SCH (09:34)
--- NOTE | 2019-11-18 10:16 | NUR ---
RADIOLOGY DEPT., CHEST X-RAY DONE.-P.DYE
--- NOTE | 2019-11-18 10:24 | Diagnostic Imaging Report ---
Indication: Shortness of breath Technique: One view of the chest Comparison: 11/17/2019 Findings: Extensive bilateral diffuse interstitial and airspace disease is unchanged. The heart is upper limits normal in size. There is slight blunting of the bilateral costophrenic sulci, unchanged. Impression: Unchanged, over one day, findings as above.
--- NOTE | 2019-11-18 10:35 | Infectious Diseases Prog Note ---
Assessment/Plan Assessment/Plan antibiotics : hydroxychloroquine A 1. COVID 19 pneumonia on 15 liters O2, 90 percent saturation s/p ivermectin 11.17.19 2. Diabetes. 3. Hypertension. 4. Renal failure. 5. Congestive heart failure. 6. Cirrhosis. P 1. continue hydroxychloroquine 3 more days 2. Continue isolation. 3. will follow up cultures Subjective ROS Limited/Unobtainable: Yes Allergies: Coded Allergies: No Known Allergies (Unverified , 11/13/19) Objective Vital Signs Last 24 Hour Vital Signs Date Time Temp Pulse Resp B/P (MAP) Pulse Ox O2 Delivery O2 Flow Rate FiO2 11/18/19 06:00 116/73 11/18/19 06:00 89 116/73 11/18/19 04:00 89 11/18/19 04:00 Bi-pap 15.0 Bi-pap 15.0 11/18/19 04:00 80 11/18/19 04:00 98.0 89 23 116/73 (87) 99 11/18/19 03:24 89 24 96 90 11/18/19 00:00 80 11/18/19 00:00 97.7 88 20 114/48 (70) 97 11/18/19 00:00 93 11/18/19 00:00 Bi-pap 15.0 Bi-pap 15.0 11/17/19 22:56 91 19 92 75 11/17/19 20:00 97.1 107 20 123/57 (79) 94 11/17/19 20:00 Bi-pap 15.0 Bi-pap 15.0 11/17/19 20:00 80 11/17/19 20:00 113 11/17/19 19:10 108 26 97 80 11/17/19 16:00 99.0 103 20 125/56 (79) 98 11/17/19 16:00 80 11/17/19 16:00 Bi-pap 15.0 Bi-pap 15.0 11/17/19 15:46 102 23 99 80 11/17/19 15:23 108 11/17/19 12:28 101 11/17/19 12:00 Bi-pap 15.0 Bi-pap 15.0 11/17/19 12:00 90 11/17/19 12:00 98.3 104 20 122/66 (84) 97 11/17/19 11:27 101 19 99 90 Height (Feet): 5 Height (Inches): 7.00 Weight (Pounds): 232 HEENT: other - on bipap Laboratory Tests Test 11/18/19 06:28 White Blood Count 14.3 K/UL (4.8-10.8) H Red Blood Count 2.29 M/UL (4.70-6.10) L Hemoglobin 7.1 G/DL (14.2-18.0) L Hematocrit 21.2 % (42.0-52.0) L Mean Corpuscular Volume 92 FL (80-99) Mean Corpuscular Hemoglobin 31.1 PG (27.0-31.0) H Mean Corpuscular Hemoglobin Concent 33.6 G/DL (32.0-36.0) Red Cell Distribution Width 13.7 % (11.6-14.8) Platelet Count 104 K/UL (150-450) L Mean Platelet Volume 5.5 FL (6.5-10.1) L Neutrophils (%) (Auto) % (45.0-75.0) Lymphocytes (%) (Auto) % (20.0-45.0) Monocytes (%) (Auto) % (1.0-10.0) Eosinophils (%) (Auto) % (0.0-3.0) Basophils (%) (Auto) % (0.0-2.0) Differential Total Cells Counted 100 Neutrophils % (Manual) 91 % (45-75) H Lymphocytes % (Manual) 6 % (20-45) L Monocytes % (Manual) 3 % (1-10) Eosinophils % (Manual) 0 % (0-3) Basophils % (Manual) 0 % (0-2) Band Neutrophils 0 % (0-8) Platelet Estimate Decreased L Platelet Morphology Normal Hypochromasia 1+ Anisocytosis 1+ Prothrombin Time 13.1 SEC (9.30-11.50) H Prothromb Time International Ratio 1.2 (0.9-1.1) H Activated Partial Thromboplast Time 36 SEC (23-33) H Sodium Level 134 MMOL/L (136-145) L Potassium Level 4.5 MMOL/L (3.5-5.1) Chloride Level 100 MMOL/L (98-107) Carbon Dioxide Level 22 MMOL/L (21-32) Anion Gap 12 mmol/L (5-15) Blood Urea Nitrogen 101 mg/dL (7-18) H Creatinine 4.9 MG/DL (0.55-1.30) H Estimat Glomerular Filtration Rate 11.7 mL/min (>60) Glucose Level 274 MG/DL (74-106) H Lactic Acid Level 2.10 mmol/L (0.4-2.0) H Uric Acid 7.9 MG/DL (2.6-7.2) H Calcium Level 7.6 MG/DL (8.5-10.1) L Phosphorus Level 6.3 MG/DL (2.5-4.9) H Magnesium Level 2.6 MG/DL (1.8-2.4) H Total Bilirubin 2.7 MG/DL (0.2-1.0) H Direct Bilirubin 2.2 MG/DL (0.0-0.3) H Aspartate Amino Transf (AST/SGOT) 150 U/L (15-37) H Alanine Aminotransferase (ALT/SGPT) 36 U/L (12-78) Alkaline Phosphatase 200 U/L (46-116) H C-Reactive Protein, Quantitative 23.3 mg/dL (0.00-0.90) H Pro-B-Type Natriuretic Peptide 16080 pg/mL (0-125) H Total Protein 5.4 G/DL (6.4-8.2) L Albumin 1.6 G/DL (3.4-5.0) L Globulin 3.8 g/dL Albumin/Globulin Ratio 0.4 (1.0-2.7) L Current Medications Medications (Trade) Dose Ordered Sig/Raciel Route PRN Reason Start Time Stop Time Status Last Admin Dose Admin Acetaminophen (Tylenol) 650 mg Q6H PRN ORAL FEVER >100.5 11/13/19 21:45 12/13/19 21:44 11/14/19 01:56 Albuterol Sulfate (Proventil MDI) 2 puff Q4H PRN INH Shortness of Breath 11/16/19 12:30 02/14/20 12:29 11/16/19 12:49 Allopurinol (allopurinoL) 300 mg DAILY ORAL 11/14/19 09:00 12/14/19 08:59 11/18/19 09:00 Aspirin (ASA) 81 mg DAILY ORAL 11/14/19 09:00 12/29/19 08:59 11/18/19 09:34 Dextrose (Dextrose 50%) 25 ml Q30M PRN IV Hypoglycemia 11/13/19 15:15 02/11/20 15:14 Dextrose (Dextrose 50%) 50 ml Q30M PRN IV Hypoglycemia 11/13/19 15:15 02/11/20 15:14 Docusate Sodium (Colace) 100 mg THREE TIMES A DAY ORAL 11/13/19 18:00 12/13/19 17:59 11/18/19 09:34 Epoetin Jovi (Epoetin Jovi-EPBX(NON ESRD)) 10,000 unit SUBQ 11/16/19 21:00 02/14/20 20:59 11/16/19 21:38 Furosemide 100 mg/ Dextrose 100 ml @ 10 mls/hr Q10H IV 11/17/19 12:30 12/17/19 12:29 11/18/19 09:33 Hydralazine HCl (Apresoline) 25 mg Q4H PRN ORAL Blood pressure over 160 systol 11/13/19 15:15 02/11/20 15:14 11/14/19 20:05 Hydralazine HCl (Apresoline) 25 mg Q8HR ORAL 11/17/19 14:00 02/13/20 13:59 Hydroxychloroquine Sulfate (Plaquenil) 200 mg Q12HR ORAL 11/18/19 09:00 11/21/19 21:01 11/18/19 09:33 Insulin Aspart (NovoLOG) BEFORE MEALS AND HS SUBQ 11/13/19 16:30 02/11/20 16:29 11/17/19 06:35 Iron Sucrose 100 mg/Sodium Chloride 60 ml @ 240 mls/hr BEDTIME IV 11/15/19 21:00 11/19/19 21:14 11/17/19 21:58 Pantoprazole (Protonix) 40 mg EVERY 12 HOURS ORAL 11/13/19 21:00 12/13/19 20:59 11/18/19 09:33 Propranolol HCl (Inderal) 20 mg Q8HR ORAL 11/16/19 14:00 12/13/19 17:59 Vitamin D (Vitamin D) 2,000 intlu DAILY ORAL 11/14/19 09:00 12/14/19 08:59 11/18/19 09:34 Iman Diego MD November 18, 2019 10:35
--- NOTE | 2019-11-18 11:16 | Pulmonology Progress Note ---
Subjective ROS Limited/Unobtainable: Yes Interval Events: Doing poorly Constitutional: Reports: no symptoms HEENT: Repors: no symptoms Respiratory: Reports: no symptoms Cardiovascular: Reports: no symptoms Gastrointestinal/Abdominal: Reports: no symptoms Genitourinary: Reports: no symptoms Allergies: Coded Allergies: No Known Allergies (Unverified , 11/13/19) Objective Last 24 Hour Vital Signs Date Time Temp Pulse Resp B/P (MAP) Pulse Ox O2 Delivery O2 Flow Rate FiO2 11/18/19 06:00 116/73 11/18/19 06:00 89 116/73 11/18/19 04:00 89 11/18/19 04:00 Bi-pap 15.0 Bi-pap 15.0 11/18/19 04:00 80 11/18/19 04:00 98.0 89 23 116/73 (87) 99 11/18/19 03:24 89 24 96 90 11/18/19 00:00 80 11/18/19 00:00 97.7 88 20 114/48 (70) 97 11/18/19 00:00 93 11/18/19 00:00 Bi-pap 15.0 Bi-pap 15.0 11/17/19 22:56 91 19 92 75 11/17/19 20:00 97.1 107 20 123/57 (79) 94 11/17/19 20:00 Bi-pap 15.0 Bi-pap 15.0 11/17/19 20:00 80 11/17/19 20:00 113 11/17/19 19:10 108 26 97 80 11/17/19 16:00 99.0 103 20 125/56 (79) 98 11/17/19 16:00 80 11/17/19 16:00 Bi-pap 15.0 Bi-pap 15.0 11/17/19 15:46 102 23 99 80 11/17/19 15:23 108 11/17/19 12:28 101 11/17/19 12:00 Bi-pap 15.0 Bi-pap 15.0 11/17/19 12:00 90 11/17/19 12:00 98.3 104 20 122/66 (84) 97 11/17/19 11:27 101 19 99 90 Intake and Output 11/17/19 11/18/19 19:00 07:00 Intake Total 1104.333 ml 409.83 ml Output Total 350 ml 300 ml Balance 754.333 ml 109.83 ml Intake Oral 1040 ml 240 ml IV Total 64.333 ml 169.83 ml Output Urine Total 350 ml 300 ml HEENT: normocephalic Respiratory: chest wall non-tender Cardiovascular: normal peripheral pulses Abdomen: normal bowel sounds Laboratory Tests 11/18/19 06:28: White Blood Count 14.3H, Red Blood Count 2.29L, Hemoglobin 7.1L, Hematocrit 21.2L, Mean Corpuscular Volume 92, Mean Corpuscular Hemoglobin 31.1H, Mean Corpuscular Hemoglobin Concent 33.6, Red Cell Distribution Width 13.7, Platelet Count 104L, Mean Platelet Volume 5.5L, Neutrophils (%) (Auto) , Lymphocytes (%) (Auto) , Monocytes (%) (Auto) , Eosinophils (%) (Auto) , Basophils (%) (Auto) , Differential Total Cells Counted 100, Neutrophils % (Manual) 91H, Lymphocytes % (Manual) 6L, Monocytes % (Manual) 3, Eosinophils % (Manual) 0, Basophils % ( Manual) 0, Band Neutrophils 0, Platelet Estimate DecreasedL, Platelet Morphology Normal, Hypochromasia 1+, Anisocytosis 1+, Prothrombin Time 13.1H, Prothromb Time International Ratio 1.2H, Activated Partial Thromboplast Time 36H , Sodium Level 134L, Potassium Level 4.5, Chloride Level 100, Carbon Dioxide Level 22, Anion Gap 12, Blood Urea Nitrogen 101H, Creatinine 4.9H, Estimat Glomerular Filtration Rate 11.7, Glucose Level 274H, Lactic Acid Level 2.10H, Uric Acid 7.9H, Calcium Level 7.6L, Phosphorus Level 6.3H, Magnesium Level 2.6H , Total Bilirubin 2.7H, Direct Bilirubin 2.2H, Aspartate Amino Transf (AST/SGOT ) 150H, Alanine Aminotransferase (ALT/SGPT) 36, Alkaline Phosphatase 200H, C- Reactive Protein, Quantitative 23.3H, Pro-B-Type Natriuretic Peptide [id number], Total Protein 5.4L, Albumin 1.6L, Globulin 3.8, Albumin/Globulin Ratio 0.4L 11/18/19 10:02: Arterial Blood pH 7.353, Arterial Blood Partial Pressure CO2 36.7, Arterial Blood Partial Pressure O2 66.3L, Arterial Blood HCO3 19.9L, Arterial Blood Oxygen Saturation 90.8L, Arterial Blood Base Excess -15.1*L, Nasir Test Positive Current Medications Medications (Trade) Dose Ordered Sig/Raciel Route PRN Reason Start Time Stop Time Status Last Admin Dose Admin Acetaminophen (Tylenol) 650 mg Q6H PRN ORAL FEVER >100.5 11/13/19 21:45 12/13/19 21:44 11/14/19 01:56 Albuterol Sulfate (Proventil MDI) 2 puff Q4H PRN INH Shortness of Breath 11/16/19 12:30 02/14/20 12:29 11/16/19 12:49 Allopurinol (allopurinoL) 300 mg DAILY ORAL 11/14/19 09:00 12/14/19 08:59 11/18/19 09:00 Aspirin (ASA) 81 mg DAILY ORAL 11/14/19 09:00 12/29/19 08:59 11/18/19 09:34 Dextrose (Dextrose 50%) 25 ml Q30M PRN IV Hypoglycemia 11/13/19 15:15 02/11/20 15:14 Dextrose (Dextrose 50%) 50 ml Q30M PRN IV Hypoglycemia 11/13/19 15:15 02/11/20 15:14 Docusate Sodium (Colace) 100 mg THREE TIMES A DAY ORAL 11/13/19 18:00 12/13/19 17:59 11/18/19 09:34 Epoetin Jovi (Epoetin Jovi-EPBX(NON ESRD)) 10,000 unit SAT-SAT-SAT SUBQ 11/16/19 21:00 02/14/20 20:59 11/16/19 21:38 Furosemide 100 mg/ Dextrose 100 ml @ 10 mls/hr Q10H IV 11/17/19 12:30 12/17/19 12:29 11/18/19 09:33 Hydralazine HCl (Apresoline) 25 mg Q4H PRN ORAL Blood pressure over 160 systol 11/13/19 15:15 02/11/20 15:14 11/14/19 20:05 Hydralazine HCl (Apresoline) 25 mg Q8HR ORAL 11/17/19 14:00 02/13/20 13:59 Hydroxychloroquine Sulfate (Plaquenil) 200 mg Q12HR ORAL 11/18/19 09:00 11/21/19 21:01 11/18/19 09:33 Insulin Aspart (NovoLOG) BEFORE MEALS AND HS SUBQ 11/13/19 16:30 02/11/20 16:29 11/17/19 06:35 Iron Sucrose 100 mg/Sodium Chloride 60 ml @ 240 mls/hr BEDTIME IV 11/15/19 21:00 11/19/19 21:14 11/17/19 21:58 Pantoprazole (Protonix) 40 mg EVERY 12 HOURS ORAL 11/13/19 21:00 12/13/19 20:59 11/18/19 09:33 Propranolol HCl (Inderal) 20 mg Q8HR ORAL 11/16/19 14:00 12/13/19 17:59 Vitamin D (Vitamin D) 2,000 intlu DAILY ORAL 11/14/19 09:00 12/14/19 08:59 11/18/19 09:34 Assessment/Plan Assessment/Plan IMPRESSION: 1. Hypoxemia; on bipap 2. Prognosis guarded. 3. Confirmed COVID-19 pneumonia. 4. HTN 5. Acute myocardial ischemia. 6. Possible [id number] myocardial infarction. 7. Acute diastolic congestive heart failure. 8. Chronic kidney disease. 9. Anemia of chronic kidney disease. 10. DM PLAN: Isolation for COVID-19. Cardiac monitoring. Diuresis; will continue Lasix gtt. HD today Acetaminophen for fevers. Oxygenation. Diabetes care Transfuse today ID consult noted Loco Young Omar Syed MD November 18, 2019 11:15
--- NOTE | 2019-11-18 11:34 | Nephrology Progress Note ---
Assessment/Plan Problem List: (1) Renal failure (ARF), acute on chronic (2) Hypoxemia (3) Suspected COVID-19 virus infection (4) Lymphopenia (5) Anemia in chronic kidney disease (CKD) (6) Hypertensive kidney disease (7) Elevated troponin I level (8) Diabetic nephropathy Assessment Chronic kidney disease stage III most likely due to diabetic nephropathy Diabetes mellitus, 4+ proteinuria Hypertension Presents with respiratory symptoms and exposure to COVID-19 virus Has lymphopenia and anemia Has hypoxia History of cirrhosis of the liver Elevated troponin Anemia of chronic kidney disease Plan November 17: Patient's renal parameters deteriorated. Anemia worsened. Discussed with PMD and RN. Will initiate dialysis treatment. We will transfuse 2 units of packed RBCs. Continue pulmonary support. We will continue to monitor renal parameters. November 16: Patient's clinical condition is deteriorating. Serum creatinine rising. Respiratory status worsening. All the data reviewed. Further worsening the renal parameters may may lead to initiation of dialysis. Continue per consultants. Discussed with Dr. Knapp. Regarding Lasix drip that the patient is on now versus anticoagulation. Previously: Adjust Inderal dosage Ramos catheter now for accurate intake and output Kayexalate for high potassium as needed IV iron Keep the blood pressure in check Check iron panel,, subcu Epogen ordered Pulmonary support Antibiotics, avoid nephrotoxic's Monitor renal parameters Urine studies Anemia work-up 24-hour urine for total protein and creatinine clearance, when serum creatinine is plateaued Per orders Subjective ROS Limited/Unobtainable: Yes Objective Objective Last 24 Hour Vital Signs Date Time Temp Pulse Resp B/P (MAP) Pulse Ox O2 Delivery O2 Flow Rate FiO2 11/18/19 08:00 97.8 87 24 116/77 (90) 93 11/18/19 08:00 90 11/18/19 08:00 Bi-pap 15.0 Bi-pap 15.0 11/18/19 07:03 93 25 93 90 11/18/19 06:00 116/73 11/18/19 06:00 89 116/73 11/18/19 04:00 89 11/18/19 04:00 Bi-pap 15.0 Bi-pap 15.0 11/18/19 04:00 80 11/18/19 04:00 98.0 89 23 116/73 (87) 99 11/18/19 03:24 89 24 96 90 11/18/19 00:00 80 11/18/19 00:00 97.7 88 20 114/48 (70) 97 11/18/19 00:00 93 11/18/19 00:00 Bi-pap 15.0 Bi-pap 15.0 11/17/19 22:56 91 19 92 75 11/17/19 20:00 97.1 107 20 123/57 (79) 94 11/17/19 20:00 Bi-pap 15.0 Bi-pap 15.0 11/17/19 20:00 80 11/17/19 20:00 113 11/17/19 19:10 108 26 97 80 11/17/19 16:00 99.0 103 20 125/56 (79) 98 11/17/19 16:00 80 11/17/19 16:00 Bi-pap 15.0 Bi-pap 15.0 11/17/19 15:46 102 23 99 80 11/17/19 15:23 108 11/17/19 12:28 101 11/17/19 12:00 Bi-pap 15.0 Bi-pap 15.0 11/17/19 12:00 90 11/17/19 12:00 98.3 104 20 122/66 (84) 97 Intake and Output 11/17/19 11/18/19 19:00 07:00 Intake Total 1104.333 ml 409.83 ml Output Total 350 ml 300 ml Balance 754.333 ml 109.83 ml Intake Oral 1040 ml 240 ml IV Total 64.333 ml 169.83 ml Output Urine Total 350 ml 300 ml Laboratory Tests 11/18/19 06:28: White Blood Count 14.3H, Red Blood Count 2.29L, Hemoglobin 7.1L, Hematocrit 21.2L, Mean Corpuscular Volume 92, Mean Corpuscular Hemoglobin 31.1H, Mean Corpuscular Hemoglobin Concent 33.6, Red Cell Distribution Width 13.7, Platelet Count 104L, Mean Platelet Volume 5.5L, Neutrophils (%) (Auto) , Lymphocytes (%) (Auto) , Monocytes (%) (Auto) , Eosinophils (%) (Auto) , Basophils (%) (Auto) , Differential Total Cells Counted 100, Neutrophils % (Manual) 91H, Lymphocytes % (Manual) 6L, Monocytes % (Manual) 3, Eosinophils % (Manual) 0, Basophils % ( Manual) 0, Band Neutrophils 0, Platelet Estimate DecreasedL, Platelet Morphology Normal, Hypochromasia 1+, Anisocytosis 1+, Prothrombin Time 13.1H, Prothromb Time International Ratio 1.2H, Activated Partial Thromboplast Time 36H , Sodium Level 134L, Potassium Level 4.5, Chloride Level 100, Carbon Dioxide Level 22, Anion Gap 12, Blood Urea Nitrogen 101H, Creatinine 4.9H, Estimat Glomerular Filtration Rate 11.7, Glucose Level 274H, Lactic Acid Level 2.10H, Uric Acid 7.9H, Calcium Level 7.6L, Phosphorus Level 6.3H, Magnesium Level 2.6H , Total Bilirubin 2.7H, Direct Bilirubin 2.2H, Aspartate Amino Transf (AST/SGOT ) 150H, Alanine Aminotransferase (ALT/SGPT) 36, Alkaline Phosphatase 200H, C- Reactive Protein, Quantitative 23.3H, Pro-B-Type Natriuretic Peptide [id number], Total Protein 5.4L, Albumin 1.6L, Globulin 3.8, Albumin/Globulin Ratio 0.4L 11/18/19 10:02: Arterial Blood pH 7.353, Arterial Blood Partial Pressure CO2 36.7, Arterial Blood Partial Pressure O2 66.3L, Arterial Blood HCO3 19.9L, Arterial Blood Oxygen Saturation 90.8L, Arterial Blood Base Excess -15.1*L, Nasir Test Positive Height (Feet): 5 Height (Inches): 7.00 Weight (Pounds): 232 General Appearance: mild distress EENT: other - Patient on BiPAP Cardiovascular: tachycardia Respiratory/Chest: decreased breath sounds Abdomen: distended Haim Yao MD November 18, 2019 11:34
[2019-11-18] MEDS ORDERED: Lidocaine 1% Plain 30 ml INJ PRN (11:35)
[2019-11-18] MEDS ORDERED: Heparin1,000 units/500ml Premix(Conc:2 units/ml) IV PRN (11:36)
--- NOTE | 2019-11-18 12:50 | NUR ---
*-* INSURANCE *-* updated CLINICALS AND REVIEWS HAVE BEEN FAXED TO: [facility] AUTH#: [id number] FAX DAILY CLINICALS TO [phone]. PHONE: [phone] OPT 1
--- NOTE | 2019-11-18 14:12 | NUR ---
CASE MANAGEMENT: REVIEW SI: ACUTE RENAL ON CHRONIC FAILURE . COVID-19 T 98.6 HR 92 RR 26 BP 116/64 SAT 93% BIPAP FIO2 90 WBC 14.3 H/H 7.1/21.2 NA 134 BUN 101 CR 4.9 LACTIC ACID 2.10 ABG: PH 7.353 PCO2 36.7 PO2 66.3 HCO3 19.9 O2 SAT 90.8 IS: VENOFER IV QHS LASIX 100ML @ 10ML/HR NOVOLOG SUBQ AC+HS EPOETIN SUBQ MWF PLAQUENIL PO Q12HR TRANSFUSION PRBC STEP DOWN UNIT STATUS DCP: PATIENT IS FROM HOME
--- NOTE | 2019-11-18 14:22 | NUR ---
NURSE NOTES: RECEIVED PT VIA BED ,ESCORTED BY SHARIFA POLLOCK AND EZIO POLLOCK ALSO A [employer] WORKER STAFF.PT SEEMS LETHARGIC O2 SAT 86%.PT PLACED ON BIPAP SETTINGS ARE /, FIO2 100,O2 SAT INCREASED TO 98. PLACED A TELEPHONE CALL TO DR ESCALANTE AND MADE AWARE AND NOTIFIED REGARDING PT WAS DESATURATING AND PLACED ON BIPAP PER ORDERS 14/04,FIO2 100%. O2 SAT INCREASED TO 98%.NO NEW ORDERS NOTED AT THIS TIME. WILL CONT TO MONITOR. Addendum: 11/18/19 at 1522 by ACACIA MARTIN RN WRONG PATIENT.
--- NOTE | 2019-11-18 14:50 | NUR ---
RADIOLOGY NOTE: RIGHT INTERIOR JUGULAR NON TUNNELED DIALYSIS PLACED.
--- NOTE | 2019-11-18 15:00 | NUR ---
NURSE NOTES:DR HORNER INSERTED A NON TUNNELED CATHETER PLACEMENT ON RT IJ. CHEST X-RAY DONE TO CONFIRM PLACEMENT OF DIALYSIS CATHETER. WILL CONT TO MONITOR.
--- NOTE | 2019-11-18 16:33 | Pre-Procedure Note/Attestation ---
Pre-Procedure Note/Attestation Complete Prior to Procedure Planned Procedure: not applicable Procedure Narrative: dialysis catheter Indications for Procedure Pre-Operative Diagnosis: renal failure Attestation I attest that I discussed the nature of the procedure; its benefits; risks and complications; and alternatives (and the risks and benefits of such alternatives ), prior to the procedure, with the patient (or the patient's legal publications sales representative). I attest that, if there was a reasonable possibility of needing a blood transfusion, the patient (or the patient's legal publications sales representative) was given the [facility] standardized written summary, pursuant to the [place] Blood Safety Act ([place] Health and Safety Code # 1645, as amended). I attest that I re-evaluated the patient just prior to the surgery and that there has been no change in the patient's H&P, except as documented below: Ramin Little MD November 18, 2019 16:33
--- NOTE | 2019-11-18 16:34 | Brief Operative Note ---
Immediate Post Operative Note Operative Note Pre-op Diagnosis: renal failure Procedure: R JESUS Pandya Post-op Diagnosis: same as pre-op Surgeon: Quincy Castro Anesthesia: local Specimen: none Complications: none Fluids: none Implant(s) used?: No Ramin Castro MD November 18, 2019 16:34
--- NOTE | 2019-11-18 16:37 | Diagnostic Imaging Report ---
Indication: Needs dialysis access Technique: Procedure performed at bedside. Procedural timeout performed. Total sterile technique, including sterile probe cover and sterile gel, sterile gloves, hand hygiene, hat, mask, sterile gown, large sterile drape, and preparation with 2% chlorhexidine utilized. Local anesthesia with 1% lidocaine. Under real-time ultrasound guidance, puncture right internal jugular vein using 21-gauge micropuncture needle, passage 0.018 guidewire, insertion 4 Occitan micropuncture introducer, passage 0.035 guidewire, over which was passed serial dilators and then a 13 Occitan 15 cm triple-lumen temporary dialysis catheter. Guidewire was removed. Catheter ports were aspirated and flushed. The catheter was fixed to the skin. Patient tolerated procedure well. A chest x-ray was obtained, documents catheter tip position at the cavoatrial junction. Comparison: 7 hours earlier Findings: As above Impression: Successful bedside placement of right transjugular temporary dialysis catheter, as described.
--- NOTE | 2019-11-18 19:00 | NUR ---
NURSE NOTES:PT RECEIVING HEMODIALYSIS PER M.D ORDERS .PT IS RECEIVING A BLOOD TRANSFUSION DURING H.D. PT TOLERATING WELL HEMODIALYSIS AND BLOOD TRANSFUSION AT THIS TIME. WILL CONT TO MONITOR.
--- NOTE | 2019-11-18 19:12 | NUR ---
HAND-OFF: Report given to .JOESPH POLLOCK
--- NOTE | 2019-11-18 19:15 | NUR ---
NURSE NOTES: Received pt from PHILL Paulino. pt is observed in bed, currently receiving HD with blood transfusion; no s/sx of pain noted at this time. pt is on CPAP: 15/5, 100%. saturation: 96%, breathing is labored at this time. F/C is patent and intact, draining to gravity. Nontunneled catheter with pigtail noted, patent and intact. bed in lowest position and locked, siderails up X3, call light within reach. airborne, droplet, and contact isolation in place for (+) COVID. will continue to monitor closely.
[2019-11-18] MEDS: Iron Sucrose 100 MG in NS 55 ML IV SCH (22:30)
[2019-11-18] MEDS: Epoetin Alfa-EPBX (NON ESRD)10,000 unit/ml vial SUBQ SCH (22:31)
[2019-11-19] VITALS: BP 107/58
[2019-11-19 04:00] VITALS: BP 113/50
[2019-11-19 05:44] LABS: HEMATOCRIT 26.3 % (42.0-52.0); HEMOGLOBIN 9.1 G/DL (14.2-18.0); MEAN CORPUSCULAR VOLUME 89 FL (80-99); PLATELET COUNT 99 K/UL (150-450); RED BLOOD COUNT 2.97 M/UL (4.70-6.10); RED CELL DISTRIBUTION WIDTH 16.3 % (11.6-14.8)
[2019-11-19] MEDS: Propranolol 10mg tab ORAL SCH ×2 (06:00→13:47)
[2019-11-19] MEDS: HydrALAZINE 25mg tab ORAL SCH ×2 (06:00→13:47)
[2019-11-19 06:10] LABS: ALANINE AMINOTRANSFERASE 34 U/L (12-78); ALBUMIN 1.5 G/DL (3.4-5.0); ALBUMIN/GLOBULIN RATIO 0.3 (1.0-2.7); ALKALINE PHOSPHATASE 231 U/L (46-116); ANION GAP 13 mmol/L (5-15); ASPARTATE AMINO TRANSFERASE 121 U/L (15-37); BILIRUBIN,TOTAL 5.1 MG/DL (0.2-1.0); BLOOD UREA NITROGEN 58 mg/dL (7-18); CALCIUM 8.3 MG/DL (8.5-10.1); CARBON DIOXIDE 24 MMOL/L (21-32); CHLORIDE 103 MMOL/L (98-107); PHOSPHORUS 5.2 MG/DL (2.5-4.9); SODIUM 140 MMOL/L (136-145)
[2019-11-19 06:11] LABS: BILIRUBIN,DIRECT 3.5 MG/DL (0.0-0.3)
[2019-11-19] MEDS: NovoLOG Insulin Flexpen SUBQ SCH ×2 (06:30→11:30)
--- NOTE | 2019-11-19 07:15 | NUR ---
NURSE NOTES: RECEIVED REPORT FROM JOESPH DEEP SUBMERGENCE VEHICLE CREWMEMBER OF MARKET RESEARCH MANAGER.PT ON DROPLET PRECAUTION ROOM FOR COVID-19 .PT RECEIVED WITH HOB ELEVATED 45 DEGREE USING CPAP 15/5 ,100% FIO2.PT OS SAT 94%.PT IS AWAKE AND ALERT SEEMS COMFORTABLE AT THIS TIME. PT RECEIVING LASIX DRIP @ 10cc/hrs connected to a picc-tail on RT IJ ,INFUSING WELL. FULL BODY ASSESSMENT DONE. WILL CONT TO MONITOR.
--- NOTE | 2019-11-19 07:29 | NUR ---
HAND-OFF: Report given to PHILL Paulino. endorsed plan of care.
[2019-11-19 08:00] VITALS: BP 129/69
[2019-11-19] MEDS: Vitamin D 1000 IU Tab ORAL SCH (08:52)
[2019-11-19] MEDS: Docusate 100mg cap ORAL SCH ×2 (08:52→13:46)
[2019-11-19] MEDS: Aspirin Baby 81mg ORAL SCH (08:52)
--- NOTE | 2019-11-19 10:42 | Infectious Diseases Prog Note ---
Assessment/Plan Assessment/Plan A 1. COVID19 pneumonia s/p ivermectin 11.17.19 2. Diabetes. 3. Hypertension. 4. Renal failure, ESRD 5. Congestive heart failure. 6. Cirrhosis. 7. Hypoxemic respiratory failure P 1. continue hydroxychloroquine 2 more days 2. Continue isolation. Subjective ROS Limited/Unobtainable: Yes Constitutional: Denies: fever Allergies: Coded Allergies: No Known Allergies (Unverified , 11/13/19) Objective Vital Signs Last 24 Hour Vital Signs Date Time Temp Pulse Resp B/P (MAP) Pulse Ox O2 Delivery O2 Flow Rate FiO2 11/19/19 08:00 15.0 100 11/19/19 08:00 Bi-pap 15.0 Bi-pap 15.0 11/19/19 08:00 97.4 98 20 129/69 (89) 98 11/19/19 08:00 101 11/19/19 08:00 97.4 98 20 129/69 (89) 98 11/19/19 07:02 117 23 96 100 11/19/19 04:00 15.0 100 11/19/19 04:00 Bi-pap 15.0 Bi-pap 15.0 11/19/19 04:00 98.8 99 20 113/50 (71) 96 11/19/19 03:29 107 11/19/19 03:04 95 23 96 100 11/19/19 00:00 106 11/19/19 00:00 Bi-pap 15.0 Bi-pap 15.0 11/19/19 00:00 97.7 101 23 107/58 (74) 96 11/19/19 00:00 15.0 100 11/18/19 22:35 104 24 97 100 11/18/19 20:55 97 26 98 100 11/18/19 20:00 98.0 97 26 125/53 (77) 94 11/18/19 20:00 90 11/18/19 20:00 15.0 100 11/18/19 20:00 Bi-pap 15.0 Bi-pap 15.0 11/18/19 16:00 Bi-pap 15.0 Bi-pap 15.0 11/18/19 16:00 98.6 97 24 104/65 (78) 98 11/18/19 16:00 96 11/18/19 16:00 15.0 100 11/18/19 15:57 98 25 98 100 11/18/19 14:30 96.4 91 26 130/95 (107) 92 11/18/19 14:23 92 116/64 11/18/19 14:22 116/64 11/18/19 12:16 15.0 90 11/18/19 12:00 98.6 92 26 116/64 (81) 96 11/18/19 12:00 Bi-pap 15.0 Bi-pap 15.0 11/18/19 11:48 91 11/18/19 11:47 99 23 99 100 Height (Feet): 5 Height (Inches): 7.00 Weight (Pounds): 232 HEENT: mucous membranes moist Respiratory/Chest: other - on BIPAP Cardiovascular: tachycardia, other - RIJ HD Abdomen: soft, non tender Neurologic/Psychiatric: other - sleeping Laboratory Tests Test 11/19/19 04:50 White Blood Count 14.0 K/UL (4.8-10.8) H Red Blood Count 2.97 M/UL (4.70-6.10) L Hemoglobin 9.1 G/DL (14.2-18.0) L Hematocrit 26.3 % (42.0-52.0) L Mean Corpuscular Volume 89 FL (80-99) Mean Corpuscular Hemoglobin 30.5 PG (27.0-31.0) Mean Corpuscular Hemoglobin Concent 34.5 G/DL (32.0-36.0) Red Cell Distribution Width 16.3 % (11.6-14.8) H Platelet Count 99 K/UL (150-450) L Mean Platelet Volume 6.4 FL (6.5-10.1) L Neutrophils (%) (Auto) % (45.0-75.0) Lymphocytes (%) (Auto) % (20.0-45.0) Monocytes (%) (Auto) % (1.0-10.0) Eosinophils (%) (Auto) % (0.0-3.0) Basophils (%) (Auto) % (0.0-2.0) Differential Total Cells Counted 100 Neutrophils % (Manual) 98 % (45-75) H Lymphocytes % (Manual) 1 % (20-45) L Monocytes % (Manual) 1 % (1-10) Eosinophils % (Manual) 0 % (0-3) Basophils % (Manual) 0 % (0-2) Band Neutrophils 0 % (0-8) Platelet Estimate Decreased L Platelet Morphology Normal Hypochromasia 2+ Anisocytosis 1+ Spherocytes 1+ Sodium Level 140 MMOL/L (136-145) Potassium Level 4.0 MMOL/L (3.5-5.1) Chloride Level 103 MMOL/L (98-107) Carbon Dioxide Level 24 MMOL/L (21-32) Anion Gap 13 mmol/L (5-15) Blood Urea Nitrogen 58 mg/dL (7-18) H Creatinine 4.0 MG/DL (0.55-1.30) H Estimat Glomerular Filtration Rate 14.8 mL/min (>60) Glucose Level 221 MG/DL (74-106) H Uric Acid 4.5 MG/DL (2.6-7.2) Calcium Level 8.3 MG/DL (8.5-10.1) L Phosphorus Level 5.2 MG/DL (2.5-4.9) H Magnesium Level 2.5 MG/DL (1.8-2.4) H Total Bilirubin 5.1 MG/DL (0.2-1.0) H Direct Bilirubin 3.5 MG/DL (0.0-0.3) H Aspartate Amino Transf (AST/SGOT) 121 U/L (15-37) H Alanine Aminotransferase (ALT/SGPT) 34 U/L (12-78) Alkaline Phosphatase 231 U/L (46-116) H Troponin I 0.183 ng/mL (0.000-0.056) C-Reactive Protein, Quantitative 41.6 mg/dL (0.00-0.90) H Pro-B-Type Natriuretic Peptide 26574 pg/mL (0-125) H Total Protein 5.9 G/DL (6.4-8.2) L Albumin 1.5 G/DL (3.4-5.0) L Globulin 4.4 g/dL Albumin/Globulin Ratio 0.3 (1.0-2.7) L Current Medications Medications (Trade) Dose Ordered Sig/Raciel Route PRN Reason Start Time Stop Time Status Last Admin Dose Admin Acetaminophen (Tylenol) 650 mg Q6H PRN ORAL FEVER >100.5 11/13/19 21:45 12/13/19 21:44 11/14/19 01:56 Albuterol Sulfate (Proventil MDI) 2 puff Q4H PRN INH Shortness of Breath 11/16/19 12:30 02/14/20 12:29 11/16/19 12:49 Allopurinol (allopurinoL) 300 mg DAILY ORAL 11/14/19 09:00 12/14/19 08:59 11/19/19 08:52 Aspirin (ASA) 81 mg DAILY ORAL 11/14/19 09:00 12/29/19 08:59 11/19/19 08:52 Dextrose (Dextrose 50%) 25 ml Q30M PRN IV Hypoglycemia 11/13/19 15:15 02/11/20 15:14 Dextrose (Dextrose 50%) 50 ml Q30M PRN IV Hypoglycemia 11/13/19 15:15 02/11/20 15:14 Docusate Sodium (Colace) 100 mg THREE TIMES A DAY ORAL 11/13/19 18:00 12/13/19 17:59 11/19/19 08:52 Epoetin Jovi (Epoetin Jovi-EPBX(NON ESRD)) 10,000 unit SAT-SAT-SAT SUBQ 11/16/19 21:00 02/14/20 20:59 11/18/19 22:31 Furosemide 100 mg/ Dextrose 100 ml @ 10 mls/hr Q10H IV 11/17/19 12:30 12/17/19 12:29 11/19/19 04:35 Hydralazine HCl (Apresoline) 25 mg Q4H PRN ORAL Blood pressure over 160 systol 11/13/19 15:15 02/11/20 15:14 11/14/19 20:05 Hydralazine HCl (Apresoline) 25 mg Q8HR ORAL 11/17/19 14:00 02/13/20 13:59 11/18/19 14:22 Hydroxychloroquine Sulfate (Plaquenil) 200 mg Q12HR ORAL 11/18/19 09:00 11/21/19 21:01 11/19/19 08:52 Insulin Aspart (NovoLOG) BEFORE MEALS AND HS SUBQ 11/13/19 16:30 02/11/20 16:29 11/17/19 06:35 Iron Sucrose 100 mg/Sodium Chloride 60 ml @ 240 mls/hr BEDTIME IV 11/15/19 21:00 11/19/19 21:14 11/18/19 22:30 Pantoprazole (Protonix) 40 mg EVERY 12 HOURS ORAL 11/13/19 21:00 12/13/19 20:59 11/19/19 08:52 Propranolol HCl (Inderal) 20 mg Q8HR ORAL 11/16/19 14:00 12/13/19 17:59 11/18/19 14:23 Vitamin D (Vitamin D) 2,000 intlu DAILY ORAL 11/14/19 09:00 12/14/19 08:59 11/19/19 08:52 Earl Venegas MD November 19, 2019 10:42
[2019-11-19 12:00] VITALS: BP 114/61
--- NOTE | 2019-11-19 12:16 | NUR ---
RESPIRATORY NOTES: Changed CPAP to BIPAP 20/16 because patient desaturating. RN Trisha aware. Order is in. Will draw ABG in one hour. Will continue to monitor Patient.
--- NOTE | 2019-11-19 12:35 | Pulmonology Progress Note ---
Subjective ROS Limited/Unobtainable: Yes Interval Events: Doing poorly Constitutional: Denies: fever HEENT: Repors: no symptoms Respiratory: Reports: no symptoms Cardiovascular: Reports: no symptoms Gastrointestinal/Abdominal: Reports: no symptoms Genitourinary: Reports: no symptoms Allergies: Coded Allergies: No Known Allergies (Unverified , 11/13/19) Objective Last 24 Hour Vital Signs Date Time Temp Pulse Resp B/P (MAP) Pulse Ox O2 Delivery O2 Flow Rate FiO2 11/19/19 11:57 108 28 94 100 11/19/19 10:52 111 21 92 100 11/19/19 08:00 15.0 100 11/19/19 08:00 Bi-pap 15.0 Bi-pap 15.0 11/19/19 08:00 97.4 98 20 129/69 (89) 98 11/19/19 08:00 101 11/19/19 08:00 97.4 98 20 129/69 (89) 98 11/19/19 07:02 117 23 96 100 11/19/19 04:00 15.0 100 11/19/19 04:00 Bi-pap 15.0 Bi-pap 15.0 11/19/19 04:00 98.8 99 20 113/50 (71) 96 11/19/19 03:29 107 11/19/19 03:04 95 23 96 100 11/19/19 00:00 106 11/19/19 00:00 Bi-pap 15.0 Bi-pap 15.0 11/19/19 00:00 97.7 101 23 107/58 (74) 96 11/19/19 00:00 15.0 100 11/18/19 22:35 104 24 97 100 11/18/19 20:55 97 26 98 100 11/18/19 20:00 98.0 97 26 125/53 (77) 94 11/18/19 20:00 90 11/18/19 20:00 15.0 100 11/18/19 20:00 Bi-pap 15.0 Bi-pap 15.0 11/18/19 16:00 Bi-pap 15.0 Bi-pap 15.0 11/18/19 16:00 98.6 97 24 104/65 (78) 98 11/18/19 16:00 96 11/18/19 16:00 15.0 100 11/18/19 15:57 98 25 98 100 11/18/19 14:30 96.4 91 26 130/95 (107) 92 11/18/19 14:23 92 116/64 11/18/19 14:22 116/64 Intake and Output 11/18/19 11/19/19 19:00 07:00 Intake Total 215.833 ml 214.166 ml Output Total 400 ml 3300 ml Balance -184.167 ml -3085.834 ml Intake Oral 120 ml 30 ml IV Total 95.833 ml 184.166 ml Output Urine Total 400 ml 300 ml Hemodialysis UF 3000 ml HEENT: normocephalic Respiratory: chest wall non-tender Cardiovascular: normal peripheral pulses Abdomen: normal bowel sounds Laboratory Tests 11/19/19 04:50: White Blood Count 14.0H, Red Blood Count 2.97L, Hemoglobin 9.1L, Hematocrit 26.3L, Mean Corpuscular Volume 89, Mean Corpuscular Hemoglobin 30.5, Mean Corpuscular Hemoglobin Concent 34.5, Red Cell Distribution Width 16.3H, Platelet Count 99L, Mean Platelet Volume 6.4L, Neutrophils (%) (Auto) , Lymphocytes (%) (Auto) , Monocytes (%) (Auto) , Eosinophils (%) (Auto) , Basophils (%) (Auto) , Differential Total Cells Counted 100, Neutrophils % ( Manual) 98H, Lymphocytes % (Manual) 1L, Monocytes % (Manual) 1, Eosinophils % ( Manual) 0, Basophils % (Manual) 0, Band Neutrophils 0, Platelet Estimate DecreasedL, Platelet Morphology Normal, Hypochromasia 2+, Anisocytosis 1+, Spherocytes 1+, Sodium Level 140, Potassium Level 4.0, Chloride Level 103, Carbon Dioxide Level 24, Anion Gap 13, Blood Urea Nitrogen 58H, Creatinine 4.0H , Estimat Glomerular Filtration Rate 14.8, Glucose Level 221H, Uric Acid 4.5, Calcium Level 8.3L, Phosphorus Level 5.2H, Magnesium Level 2.5H, Total Bilirubin 5.1H, Direct Bilirubin 3.5H, Aspartate Amino Transf (AST/SGOT) 121H, Alanine Aminotransferase (ALT/SGPT) 34, Alkaline Phosphatase 231H, Troponin I 0.183H, C-Reactive Protein, Quantitative 41.6H, Pro-B-Type Natriuretic Peptide 21483O, Total Protein 5.9L, Albumin 1.5L, Globulin 4.4, Albumin/Globulin Ratio 0.3L Current Medications Medications (Trade) Dose Ordered Sig/Raciel Route PRN Reason Start Time Stop Time Status Last Admin Dose Admin Acetaminophen (Tylenol) 650 mg Q6H PRN ORAL FEVER >100.5 11/13/19 21:45 12/13/19 21:44 11/14/19 01:56 Albuterol Sulfate (Proventil MDI) 2 puff Q4H PRN INH Shortness of Breath 11/16/19 12:30 02/14/20 12:29 11/16/19 12:49 Allopurinol (allopurinoL) 300 mg DAILY ORAL 11/14/19 09:00 12/14/19 08:59 11/19/19 08:52 Aspirin (ASA) 81 mg DAILY ORAL 11/14/19 09:00 12/29/19 08:59 11/19/19 08:52 Dextrose (Dextrose 50%) 25 ml Q30M PRN IV Hypoglycemia 11/13/19 15:15 02/11/20 15:14 Dextrose (Dextrose 50%) 50 ml Q30M PRN IV Hypoglycemia 11/13/19 15:15 02/11/20 15:14 Docusate Sodium (Colace) 100 mg THREE TIMES A DAY ORAL 11/13/19 18:00 12/13/19 17:59 11/19/19 08:52 Epoetin Jovi (Epoetin Jovi-EPBX(NON ESRD)) 10,000 unit SAT-SAT-SAT SUBQ 11/16/19 21:00 02/14/20 20:59 11/18/19 22:31 Furosemide 100 mg/ Dextrose 100 ml @ 10 mls/hr Q10H IV 11/17/19 12:30 12/17/19 12:29 11/19/19 04:35 Hydralazine HCl (Apresoline) 25 mg Q4H PRN ORAL Blood pressure over 160 systol 11/13/19 15:15 02/11/20 15:14 11/14/19 20:05 Hydralazine HCl (Apresoline) 25 mg Q8HR ORAL 11/17/19 14:00 02/13/20 13:59 11/18/19 14:22 Hydroxychloroquine Sulfate (Plaquenil) 200 mg Q12HR ORAL 11/18/19 09:00 11/21/19 21:01 11/19/19 08:52 Insulin Aspart (NovoLOG) BEFORE MEALS AND HS SUBQ 11/13/19 16:30 02/11/20 16:29 11/17/19 06:35 Iron Sucrose 100 mg/Sodium Chloride 60 ml @ 240 mls/hr BEDTIME IV 11/15/19 21:00 11/19/19 21:14 11/18/19 22:30 Pantoprazole (Protonix) 40 mg EVERY 12 HOURS ORAL 11/13/19 21:00 12/13/19 20:59 11/19/19 08:52 Propranolol HCl (Inderal) 20 mg Q8HR ORAL 11/16/19 14:00 12/13/19 17:59 11/18/19 14:23 Vitamin D (Vitamin D) 2,000 intlu DAILY ORAL 11/14/19 09:00 12/14/19 08:59 11/19/19 08:52 Assessment/Plan Assessment/Plan IMPRESSION: 1. Hypoxemia; on bipap 2. Prognosis guarded. 3. Confirmed COVID-19 pneumonia. 4. HTN 5. Acute myocardial ischemia. 6. Possible mjr-EO-vwyeiidac myocardial infarction. 7. Acute diastolic congestive heart failure. 8. Chronic kidney disease. 9. Anemia of chronic kidney disease. 10. DM PLAN: Isolation for COVID-19. Cardiac monitoring. Diuresis; will continue Lasix gtt. HD today Acetaminophen for fevers. Oxygenation. Diabetes care Transfused ID consult noted S/p HD May need intubation Loco Young Omar Syed MD November 19, 2019 12:35
--- NOTE | 2019-11-19 12:49 | NUR ---
CASE MANAGEMENT: REVIEW SI: ACUTE RENAL ON CHRONIC FAILURE . COVID-19 T 97.4 HR 117 RR 28 BP 113/50 SAT 96% BIPAP FIO2 100 WBC 14.0 H/H 9.1/26.3 BUN 28 CR 4.0 TROP 0.183 IS: VENOFER IV QHS LASIX 100ML @ 10ML/HR NOVOLOG SUBQ AC+HS EPOETIN SUBQ MWF PLAQUENIL PO Q12HR TRANSFUSION PRBC STEP DOWN UNIT STATUS DCP: PATIENT IS FROM HOME
--- NOTE | 2019-11-19 13:13 | Nephrology Progress Note ---
Assessment/Plan Problem List: (1) Renal failure (ARF), acute on chronic (2) Hypoxemia (3) Suspected COVID-19 virus infection (4) Lymphopenia (5) Anemia in chronic kidney disease (CKD) (6) Hypertensive kidney disease (7) Elevated troponin I level (8) Diabetic nephropathy Assessment Chronic kidney disease stage III most likely due to diabetic nephropathy Diabetes mellitus, 4+ proteinuria Hypertension Presents with respiratory symptoms and exposure to COVID-19 virus Has lymphopenia and anemia Has hypoxia History of cirrhosis of the liver Elevated troponin Anemia of chronic kidney disease Plan November 18: Patient was dialyzed and 3 L ultrafiltrate had yesterday. Patient also was transfused 2 units of packed RBCs. Patient's respiratory status remains poor. Patient on BiPAP. Today's labs reviewed. Lasix drip continues. Will attempt hemodialysis with ultrafiltration tomorrow. Chest x-ray will be ordered for tomorrow. Labs will be checked for tomorrow. Today's ABG is still pending. November 17: Patient's renal parameters deteriorated. Anemia worsened. Discussed with PMD and RN. Will initiate dialysis treatment. We will transfuse 2 units of packed RBCs. Continue pulmonary support. We will continue to monitor renal parameters. November 16: Patient's clinical condition is deteriorating. Serum creatinine rising. Respiratory status worsening. All the data reviewed. Further worsening the renal parameters may may lead to initiation of dialysis. Continue per consultants. Discussed with Dr. Knapp. Regarding Lasix drip that the patient is on now versus anticoagulation. Previously: Adjust Inderal dosage Ramos catheter now for accurate intake and output Kayexalate for high potassium as needed IV iron Keep the blood pressure in check Check iron panel,, subcu Epogen ordered Pulmonary support Antibiotics, avoid nephrotoxic's Monitor renal parameters Urine studies Anemia work-up 24-hour urine for total protein and creatinine clearance, when serum creatinine is plateaued Per orders Objective Objective Last 24 Hour Vital Signs Date Time Temp Pulse Resp B/P (MAP) Pulse Ox O2 Delivery O2 Flow Rate FiO2 11/19/19 11:57 108 28 94 100 11/19/19 10:52 111 21 92 100 11/19/19 08:00 15.0 100 11/19/19 08:00 Bi-pap 15.0 Bi-pap 15.0 11/19/19 08:00 97.4 98 20 129/69 (89) 98 11/19/19 08:00 101 11/19/19 08:00 97.4 98 20 129/69 (89) 98 11/19/19 07:02 117 23 96 100 11/19/19 04:00 15.0 100 11/19/19 04:00 Bi-pap 15.0 Bi-pap 15.0 11/19/19 04:00 98.8 99 20 113/50 (71) 96 11/19/19 03:29 107 11/19/19 03:04 95 23 96 100 11/19/19 00:00 106 11/19/19 00:00 Bi-pap 15.0 Bi-pap 15.0 11/19/19 00:00 97.7 101 23 107/58 (74) 96 11/19/19 00:00 15.0 100 11/18/19 22:35 104 24 97 100 11/18/19 20:55 97 26 98 100 11/18/19 20:00 98.0 97 26 125/53 (77) 94 11/18/19 20:00 90 11/18/19 20:00 15.0 100 11/18/19 20:00 Bi-pap 15.0 Bi-pap 15.0 11/18/19 16:00 Bi-pap 15.0 Bi-pap 15.0 11/18/19 16:00 98.6 97 24 104/65 (78) 98 11/18/19 16:00 96 11/18/19 16:00 15.0 100 11/18/19 15:57 98 25 98 100 11/18/19 14:30 96.4 91 26 130/95 (107) 92 11/18/19 14:23 92 116/64 11/18/19 14:22 116/64 Intake and Output 11/18/19 11/19/19 19:00 07:00 Intake Total 215.833 ml 214.166 ml Output Total 400 ml 3300 ml Balance -184.167 ml -3085.834 ml Intake Oral 120 ml 30 ml IV Total 95.833 ml 184.166 ml Output Urine Total 400 ml 300 ml Hemodialysis UF 3000 ml Laboratory Tests 11/19/19 04:50: White Blood Count 14.0H, Red Blood Count 2.97L, Hemoglobin 9.1L, Hematocrit 26.3L, Mean Corpuscular Volume 89, Mean Corpuscular Hemoglobin 30.5, Mean Corpuscular Hemoglobin Concent 34.5, Red Cell Distribution Width 16.3H, Platelet Count 99L, Mean Platelet Volume 6.4L, Neutrophils (%) (Auto) , Lymphocytes (%) (Auto) , Monocytes (%) (Auto) , Eosinophils (%) (Auto) , Basophils (%) (Auto) , Differential Total Cells Counted 100, Neutrophils % ( Manual) 98H, Lymphocytes % (Manual) 1L, Monocytes % (Manual) 1, Eosinophils % ( Manual) 0, Basophils % (Manual) 0, Band Neutrophils 0, Platelet Estimate DecreasedL, Platelet Morphology Normal, Hypochromasia 2+, Anisocytosis 1+, Spherocytes 1+, Sodium Level 140, Potassium Level 4.0, Chloride Level 103, Carbon Dioxide Level 24, Anion Gap 13, Blood Urea Nitrogen 58H, Creatinine 4.0H , Estimat Glomerular Filtration Rate 14.8, Glucose Level 221H, Uric Acid 4.5, Calcium Level 8.3L, Phosphorus Level 5.2H, Magnesium Level 2.5H, Total Bilirubin 5.1H, Direct Bilirubin 3.5H, Aspartate Amino Transf (AST/SGOT) 121H, Alanine Aminotransferase (ALT/SGPT) 34, Alkaline Phosphatase 231H, Troponin I 0.183H, C-Reactive Protein, Quantitative 41.6H, Pro-B-Type Natriuretic Peptide 74778N, Total Protein 5.9L, Albumin 1.5L, Globulin 4.4, Albumin/Globulin Ratio 0.3L Height (Feet): 5 Height (Inches): 7.00 Weight (Pounds): 232 Haim Yao MD November 19, 2019 13:13
[2019-11-19] MEDS ORDERED: Heparin 5000 units/ml inj IV ONE (15:15)
[2019-11-19 16:00] VITALS: BP 104/64
--- NOTE | 2019-11-19 16:27 | NUR ---
*-* INSURANCE *-* updated CLINICALS AND REVIEWS HAVE BEEN FAXED TO: [facility] AUTH#: [id number] FAX DAILY CLINICALS TO [phone]. PHONE: [phone] OPT 1
[2019-11-19] MEDS ORDERED: Heparin 5000 units/ml inj IV SCH (16:30)
[2019-11-19 16:42] LABS: HEMATOCRIT 31.2 % (42.0-52.0); HEMOGLOBIN 9.8 G/DL (14.2-18.0); INR 1.4 (0.9-1.1); MEAN CORPUSCULAR VOLUME 97 FL (80-99); PLATELET COUNT 98 K/UL (150-450); RED BLOOD COUNT 3.22 M/UL (4.70-6.10); RED CELL DISTRIBUTION WIDTH 19.5 % (11.6-14.8); WHITE BLOOD COUNT 13.7 K/UL (4.8-10.8)
[2019-11-19] MEDS ORDERED: Heparin 25,000u/D5W 500ml 500 ML IV SCH (17:00)
--- NOTE | 2019-11-19 17:55 | NUR ---
NURSE NOTES: 1727 code blue called,patient removed BIPAP,not breathing,[id number]-see code blue record 175 I called daughter-Ericka,notified about emergency situation,will update ,PHILL Paulino notified [address] Knapp patient Code jourdan called,will transfer to ICU
--- NOTE | 2019-11-19 18:20 | NUR ---
NURSE NOTES: Pt transferred to ICU s/p Code Reid. Upon arrival to the unit, Pt's HR was displaying in the 20's on the portable semi driver. Pt had no pulse on assessment. Code Blue 19 called at this time. Code ran by ER Dr. Jerez. ACLS guidelines followed.
[2019-11-19] MEDS ORDERED: Amiodarone 150mg/3ml Amp ONE (18:32)
[2019-11-19] MEDS ORDERED: Tubing IV Secondary IV ONE (18:32)
[2019-11-19] MEDS ORDERED: NS 275ml ONE (18:32)
[2019-11-19] MEDS ORDERED: Sodium Bicarbonate 50ml Carp ONE (18:32)
[2019-11-19] MEDS ORDERED: Tubing Blood Filter IV ONE (18:32)
--- NOTE | 2019-11-19 18:33 | NUR ---
NURSE NOTES: Pt remained asystole, despite multiple rounds of CPR. Pt /pronounced at this time by Dr. Jerez.
--- NOTE | 2019-11-19 19:14 | NUR ---
NURSING NOTE: At 1725, patient became unresponsive upon verbal and tactile stimuli with a heart rate of 30bpm. Code Blue was called and compressions were immediately performed. At 1736 there was no pulse and compressions were continued. Patient was intubated by Dr. Jerez. Pulse was present upon intubation and patient immediately transferred to [facility]. Patient coded again and became Asystole and was pronounced by Dr. Jerez at 1833. Report given to PHILL Domingo staff ICU. Family notified and made aware.
--- NOTE | 2019-11-19 19:20 | NUR ---
NURSE NOTES: Family notified. Dr Knapp notified.
--- NOTE | 2019-11-19 19:40 | NUR ---
HAND-OFF: Post-mortem Care done with PM nurse. Body endorsed to PHILL Bajwa.
--- NOTE | 2019-11-19 22:57 | Emergency Room Report ---
Physical Exam Vital Signs Date Time Temp Pulse Resp B/P (MAP) Pulse Ox O2 Delivery O2 Flow Rate FiO2 11/15/19 07:44 65 11/15/19 08:00 Non-Rebreather 15.0 11/15/19 08:00 98.3 20 124/75 (91) 100 11/16/19 11:12 100 Medical Decision Making Diagnostic Impression: Primary Impression: Suspected COVID-19 virus infection Additional Impressions: Hypoxemia Pulmonary edema Renal failure Lymphopenia ER Course Called the patient bedside for CODE BLUE due to respiratory failure. Nursing reports stated the patient had been increasingly bradycardic and apneic while on BiPAP. I arrived with ongoing compressions. Epinephrine already been given and continued per ACLS protocol. Patient was intubated under direct visualization with the aid of a bougie without complications. Improved oxygenation. Patient showed asystole on monitor on my arrival however after several rounds of CPR and epinephrine monitor showed V. tach. Received several defibrillations after which a more regular rhythm was obtained. Patient was given amiodarone. Patient achieved return of spontaneous circulation and was transferred to the ICU. Approximately 30 minutes later another CODE BLUE was called for the patient. I arrived again with ongoing compressions having received multiple doses of epinephrine. Due to the prolonged previous code and ongoing compressions for the patient's prognosis was very poor. Remained asystole on monitor at all pulse checks. Resuscitative efforts were terminated. Time of pronounced at 1833 Last Vital Signs Date Time Temp Pulse Resp B/P (MAP) Pulse Ox O2 Delivery O2 Flow Rate FiO2 11/19/19 16:00 106 24 104/64 (77) 95 11/19/19 16:00 100 11/19/19 16:00 Bi-pap 15.0 Bi-pap 15.0 11/19/19 12:00 97.6 Disposition: ADMITTED INPATIENT Condition: Critical Referrals: [facility] (PCP) Procedures Intubation Intubation : Consent: Emergent Intubation Method: orotracheal Tube Size (cm): 7.5 Breath Sounds after Intubation: equal Intubation Complications: no complications Attempts: One Patient Tolerated: Well Complications: None Lane Jerez MD November 19, 2019 22:57
--- NOTE | 2019-11-20 09:02 | Discharge Summary ---
Discharge Summary Discharge Summary _ SUMMARY DATE OF ADMISSION: 11/13/2019 DATE OF EXPIRATION: 11/19/2019 REASON FOR ADMISSION: 74 years old male with past medical history of hypertension, diabetes mellitus, liver cirrhosis, chronic kidney disease, anemia of chronic kidney disease, hypertensive heart disease, diastolic congestive heart failure, history of esophagitis was brought to emergency department by paramedics. Patient reported being fatigued and tired for the last week. Over the past few days he developed shortness of breath and had two episodes of fainting. Patient reported history of anemia , which required prior blood transfusion. Over the past few days patient became progressively short of breath. Patient was tested for COVID-19 day prior to presentation to ED at the drive- through location, and the test results still pending. Later the patient's daughter arrived and stated , that the family member had been tested positive for COVID-19 few days ago. Patient was hypoxic and was placed on 100% nonrebreathing mask. ABG on 100% nonrebreathing mask was stable . Laboratory work-up revealed no leukocytosis ,hemoglobin 9.1, hematocrit 26.9, platelet count 128. Lymphocyte percentage low - 12.6. D-dimer 2.16. CRP 15.7 Lactic acid 1.8. Sodium 133, potassium 5.1. BUN 44, creatinine 2.9. Glucose 151. AST 28, ALT 15. Troponin 0.06. Pro BNP 5929. EKG reveals sinus rhythm , no acute ischemic changes. Chest x-ray demonstrated bilateral diffuse alveolar densities: infiltrates versus edema. Urinalysis revealed no evidence of urinary tract infection. Patient was swabbed for COVID-19. Patient was able to do some proning while in ED, since he was alert and able to follow instructions. Patient subsequently admitted for further management. CONSULTANTS: litigation associate Dr. Griggs ID specialist Dr. Diego dipper and drier Dr. Yao [facility] COURSE: Patient admitted to monitored floor to isolation room. Patient started on diuresis. Supplemental oxygen provided and titrated to keep pulse ox above 92% Echocardiogram and venous duplex were ordered. Classification Clerk titrated anti-failure and antihypertensive regimen. Blood sugar was managed with a sliding scale of insulin. Blood cultures were negative. SARS COV2 by PCR from 11/12 came back detected. Patient had leukocytosis and low grade fevers. Patient was treated with Plaquenil. QT interval was closely monitored while on hydroxychloroquine. Patient also received ivermectin. Classification Clerk closely followed. Troponin trending up. Antiplatelet therapy with ASpirin and beta blockage provided. Patient also started on heparin drip . Lasix drip continued. Hemoglobin and hematocrit were closely monitored with goal to keep hemoglobin above 7 . Patient undergone transfusion of total of 2 units of packed red blood cells. Patient started on Epogen and IV Venofer. GI prophylaxis provided. Patient was followed-up with chest x-ray, which showed extensive bilateral diffuse interstitial airspace disease. Renal parameters and electrolytes were closely monitored. Creatinine worsened from initial 2.9 up to highest 4.9. Hyperkalemia treated with Kayexalate. Decision was made to start hemodialysis . Patient undergone insertion of non- tunneled hemodialysis catheter on 11/17. Urine studies were done. Patient was dialyzed as per dipper and drier recommendations. Respiratory status remained poor. Patient was on the BiPAP with close monitoring of ABG and CXR. Lasix drip continued. Overall condition remained critical with guarded prognosis. CODE BLUE was called on 11/19/2019 due to respiratory failure. Patient became increasingly bradycardic and apneic while on BiPAP. ACLS protocol initiated. Patient was orally intubated. Initially after several rounds of CPR and further interventions patient achieved return of spontaneous circulation and was transferred to ICU. However approximately 30 minutes later , another CODE BLUE was called. ACLS protocol initiated again. Unfortunately despite prolonged resuscitative efforts , all attempts appeared to be futile. Patient remained in asystole on the monitor. Patient was pronounced at 18:33 on 11/18. Cause of : cardiopulmonary arrest FINAL DIAGNOSES: Status post cardiopulmonary arrest x2 Acute hypoxemic respiratory failure requiring intubation Confirmed COVID-19 infection Pneumonia due to COVID-19 ARDS Renal failure, acute on chronic Chronic kidney disease stage III , likely due to diabetic nephropathy Acute on chronic diastolic congestive heart failure Hypertensive heart disease Elevated troponin/acute myocardial ischemia Possible NSTEMI Diabetes mellitus with nephropathy Hyperkalemia Liver cirrhosis Proteinuria Anemia of chronic kidney disease Severe protein calorie malnutrition I have been assigned to dictate discharge summary for this account. I was not involved in the patient's management. Marcelle Griffin NP November 20, 2019 09:02
--- NOTE | 2019-11-20 14:08 | NUR ---
*-* INSURANCE *-* DISCHARGE SUMMARY HAS BEEN FAXED TO: [facility] AUTH#: [id number] FAX DAILY CLINICALS TO [phone]. PHONE: [phone] OPT 1
--- NOTE | 2019-11-20 17:45 | Progress Note ---
DATE: 11/19/2019 CARDIOLOGY PROGRESS NOTE LATE ENTRY DUE TO POWER OUTAGE SUBJECTIVE: The patient was seen and evaluated early in the day. The patient's condition has deteriorated. He has been placed on BiPAP support. He has received hemodialysis with ultrafiltration of 3 liters yesterday as well as packed red blood cell transfusions. He remains on Lasix drip to improve output. PHYSICAL EXAMINATION: VITAL SIGNS: Blood pressure 114/61, pulse 110, respiratory rate 20. LUNGS: Diminished breath sounds with rhonchi and rales. HEART: Regular rhythm. Rapid rate. Normal S1, S2. ABDOMEN: Soft. A 1+ dependent edema. LABORATORY AND DIAGNOSTIC DATA: ABG 7.37, 40, 45. BUN 58, creatinine 4, potassium 4. Troponin 0.183. IMPRESSION: 1. Acute on chronic renal failure. 2. Ongoing myocardial ischemia and possible non-ST elevation infarction. 3. Severe hypoxia. 4. COVID-19 pneumonia. 5. Severe protein-calorie malnutrition. 6. Acute on chronic diastolic congestive heart failure. 7. Lactic acidosis. 8. The patient remains with serious condition and guarded prognosis. PLAN: 1. Oxygenation. 2. May need ventilator support, attempt fluid mobilization, and may need additional hemodialysis. 3. ICU regimen reviewed with staff. Jonah Griggs M.D. DR: Kirstin JOB#: [id number] CC:
--- NOTE | 2019-11-20 18:30 | Progress Note ---
DATE: 11/18/2019 CARDIOLOGY PROGRESS NOTE This is a late entry because of computer system down. SUBJECTIVE: The patient was seen and evaluated. Case was discussed with consultants. Condition has deteriorated. The patient is more anemic and is being transfused 2 units of packed red blood cells. In addition, he had a dialysis access placed and is status post hemodialysis with 3 liters of ultrafiltration. PHYSICAL EXAMINATION: VITAL SIGNS: Blood pressure 125/53, heart rate 97, respirations 26, afebrile, oxygen saturation 94% on a face mask. LUNGS: Bilateral rales. CARDIAC: Regular rhythm and rate. Normal S1, S2. ABDOMEN: Soft. EXTREMITIES: 1+ dependent edema. IMPRESSION: 1. Acute on chronic renal failure. 2. COVID-19 pneumonia. 3. Acute myocardial ischemia. 4. Severe protein-calorie malnutrition. 5. Severe anemia. 6. Hypertensive heart disease. 7. Hypoxia. PLAN: 1. Monitor renal parameters and volume status. 2. Followup blood counts. 3. Epogen and iron replacement. 4. Antimicrobials. 5. Titrate cardiovascular regimen based on clinical parameters. 6. Oxygenation. 7. Isolation. 8. Patient is high risk and condition remains serious with guarded prognosis. Jonah Griggs M.D. DR: LYNETTE JOB#: [id number] CC:
== END 2019-11-19 18:33 | disposition expired | DRG 177 ==
LOC: EDBD 09:30 → EMR 09:47 → 2W 12:20 → EDBEDREQ 13:56 → 2W 11-14 18:10 → ICU 11-19 18:18
PROC: 5A1D70Z Performance of Urinary Filtration, Intermittent, Less than 6 Hours Per Day (ICD-10-PCS; principal; 2019-11-18)
PROC: 05HM33Z Insertion of Infusion Device into Right Internal Jugular Vein, Percutaneous Approach (ICD-10-PCS; principal; 2019-11-18)
PROC: 0BH17EZ Insertion of Endotracheal Airway into Trachea, Via Natural or Artificial Opening (ICD-10-PCS; 2019-11-19)
PROC: 5A2204Z Restoration of Cardiac Rhythm, Single (ICD-10-PCS; 2019-11-19)
DX: U07.1 COVID-19 (principal); E43 Unspecified severe protein-calorie malnutrition; J12.89 Other viral pneumonia; I50.33 Acute on chronic diastolic (congestive) heart failure; J80 Acute respiratory distress syndrome; I21.4 Non-ST elevation (NSTEMI) myocardial infarction; N17.9 Acute kidney failure, unspecified; I13.0 Hypertensive heart and chronic kidney disease with heart failure and stage 1 through stage 4 chronic kidney disease, or unspecified chronic kidney disease; E11.22 Type 2 diabetes mellitus with diabetic chronic kidney disease; E11.21 Type 2 diabetes mellitus with diabetic nephropathy; N18.3 Chronic kidney disease, stage 3 (moderate); D72.810 Lymphocytopenia; D63.1 Anemia in chronic kidney disease; K74.60 Unspecified cirrhosis of liver; K20.9 Esophagitis, unspecified; E87.5 Hyperkalemia
CPT/HCPCS: 36415; 36569; 36600; 71045; 76937; 80048; 80053; 80061; 81003; 82140; 82248; 82533; 82550; 82553; 82607; 82728; 82746; 82803; 82962; 82977; 83036; 83540; 83550; 83605; 83615; 83735; 83880; 84100; 84443; 84484; 84550; 85007; 85025; 85379; 85610; 85730; 86140; 86706; 86850; 86900; 86901; 86920; 87040; 87635; 89050; 93005; 94660; 99285; J0171; J1815